=== PATIENT | male | born 1960 | race Caucasian/White ===

== ENCOUNTER → 2024-10-20 | Outpatient (CLI) | payer OTHER, SELFPAY ==
--- NOTE | 2024-10-20 08:00 | EKG12_ITS ---
Test Reason : CARDIAC ARRYTHMIA Blood Pressure : */* mmHG Vent. Rate : 78 BPM Atrial Rate : 88 BPM P-R Int : 152 ms QRS Dur : 90 ms QT Int : 360 ms P-R-T Axes : 59 36 32 degrees QTcB Int : 410 ms Sinus rhythm with marked sinus arrhythmia with junctional escape complexes Possible Inferior infarct , age undetermined Abnormal ECG Confirmed by KAYLIE SCHAFFER, VIVIANA ([id number]), order editor JING PALMA ([id number]) on 10/25/2024 6:48:40 AM Referred By: Sky Venegas Confirmed By: VIVIANA LOTT MD
== END | disposition home or self-care (01) ==
LOC: PSN 07:59
DX: I49.9 Cardiac arrhythmia, unspecified (principal)
CPT/HCPCS: 93005

== ENCOUNTER 2024-12-20 07:28 | Day surgery (SDC) | payer OTHER, SELFPAY ==
--- NOTE | 2024-12-16 14:13 | PAT.ANESEVAL ---
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 When Was Last Pacemaker Check QUESTION #4 FULL TEXT: You/Your Family Experience fever (hyperthermia) with Anesthesia Last Oral Intake Last Oral intake: Last Oral Intake NPO since Meds taken in AM with sips of water? 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 Female No 12/16/24 11:47 HX of Motion Sickness No 12/16/24 11:47 HX of N/V After Surgery No 12/16/24 11:47 Non-Smoker Yes 12/16/24 11:47 Duration of Surgery greater No 12/16/24 11:47 than 60 minutes Number of Risk Factors 1 12/16/24 11:47 PONV Score Low Risk 12/16/24 11:47 Height & Weight Height & Weight: Anesthesia: Height & Weight Height 73 ft 12/07/23 11:11 Respiratory Assessment Respiratory Assessment - seal delivery vehicle team technician: Respiratory Tract Infection Hx - 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 Has anyone observed you stop No 12/16/24 11:47 breathing during sleep? STOP Results Negative 12/16/24 11:47 QUESTION #5 FULL TEXT : Do you snore loudly (louder than talking or can be heard through closed doors)? 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 Specify any problems Hx of Preganancy in last 3 N/A 12/16/24 11:47 Months Nurse Filling Out Transfusion MGRIFFITH 12/16/24 11:47 & Questions: Date: 12/16/24 12/16/24 11:47 Time: 11:49 12/16/24 11:47 Patient unable to answer at this time (ie. 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: /Reproductive Hx- seal delivery vehicle team technician Hx Now Gestational Age (in weeks): EDC: Hx Hx Para [facility] History (Updated 12/16/24 @ 11:54 by Lisa Dunn) Non-smoker History of irregular heartbeat Home Medications ?Medication ?Instructions ?Recorded ?Last Taken ?Type NK 12/16/24 Unknown History Allergy/AdvReac Type Severity Reaction Status Date / Time No Known Allergies Allergy Verified 12/16/24 11:45 Surgical History (Updated 12/16/24 @ 11:47 by Lisa Dunn) History of knee surgery History of shoulder surgery History of back surgery History of colonoscopy Social History (System 01/01/24 @ 14:59 by Nica Vo) Smoking Status: Never smoker Audit: Pertinent Findings Pertinent Findings EKG Perinent findings: October 20, 2024. Sinus rhythm with marked sinus arrhythmia with junctional escape complexes. Possible inferior infarct, age undetermined. Recommendation Anesthesia Recommendation Anesthesia recommendation: OPTIMIZED for anesthesia
--- OUTSIDE RECORDS SUMMARY | 2024-12-20 07:30 | XMS RPT_ITS | CCD ---
Author Organization [facility] Care Team Providers Care Manager Global Name Role Phone Unavailable Primary Care Provider UnavailNEDRA Gould Attending Unavailable NEDRA PADRON Primary Care Unavailable NEDRA PADRON Admitting Unavailable ALFREDITO PATRICK CNP Admitting Unavailable ALFREDITO PATRICK CNP Attending Unavailable ALFREDITO PATRICK CNP Primary Care Unavailable Beam OFFICE SERVICES ASSISTANT-C, Zebulun Primary Care Provider [phone] Beam OFFICE SERVICES ASSISTANT-C, [place]ebulun Attending Provider Beam OFFICE SERVICES ASSISTANT-C, [place]un Referring Provider [phone] Melo Ramesh Primary Care Provider [phone] KASH GARCIA Referring UnavailMELO Alarcon Primary Care Unavailable SELF Referring Unavailable KASH GARCIA Attending UnavailMELO Alarcon Primary Care Unavailable Beam VSC, Zebulun Primary Care Unavailable Roger Collins Attending Unavailjared e Beam VSC, [place]ebulun Referring Unavailable Beam VSC, Zebulun Primary Care Unavailable Beam VSC, Zebulun Referring Unavailable Beam VSC, [place]ebulun Attending Unavailable Leonel Grubbs Attending Unavailable Beam VSC, [place]un Referring Unavailable Beam VSC, Zebulun Primary Care Unavailable Medications Current Medications Medication Drug Class(es) Dates Sig (Normalized) Sig (Original) acetaminophen 325 mg / HYDROcodone bitartrate 5 mg oral tablet (10 sources) Opioid Agonist Start: 07-12-2014 take 1 tablet by mouth every six hours as needed HYDROcodone-aceta minophen (NORCO) 5-325 mg per tablet Take 1 tablet by mouth every 6 hours as needed. 17 tablet 0 07/12/2014 Active Start: 07-10-2014 HYDROcodone-ac etaminophen (NORCO) 5-325 mg per tablet Indications: pain take 1-2 tablets every 4-6 hours as needed for pain Indications: PAIN 50 tablet 0 07/10/2014 Active cephalexin 500 mg oral capsule (5 sources) Cephalosporin Antibacterial take 1 capsule by mouth four times daily cephALEXin (KEFLEX) 500 mg capsule Take 500 mg by mouth four times daily. Active docusate sodium 100 mg oral capsule (5 sources) Start: 07-10-19 15 take 1 capsule by mouth twice daily as needed for constipation docusate sodium (COLACE) 100 mg capsule Indications: constipation Take 1 capsule by mouth twice daily as needed for Constipation. Indications: CONSTIPATION 0 07/10/2014 Active mupirocin 0.02 mg/mg topical ointment (6 sources) RNA Synthetase Inhibitor Antibacterial Start: 12-06-19 25 End: 05-01-20 25 mupirocin (BACTROBAN) 2 % ointment Indications: Preop testing Apply to both nares twice daily for the five days preceding your joint replacement surgery 22 g 12/05/2024 05/01/2025 Active Start: 06-22-2014 mupirocin (JESÚS TROBAN) 2 % nasal ointment appy twice a day to both nostrils with a q tip beginning five days prior to surgery 1 Tube 0 06/22/2014 Active ondansetron 4 mg disintegrating oral tablet (5 sources) Serotonin-3 Receptor Antagonist Start: 07-12-2014 take 1 tablet by mouth every six hours ondansetron orally disintegrating (ZOFRAN ODT) 4 mg disintegrating tablet Take 1 tablet by mouth every 6 hours. 17 tablet 0 07/12/2014 Active 72 hr scopolamine 0.0139 mg/hr transdermal system (5 sources) Anticholinergic Start: 07-10-2014 apply 1.5 mg transdermal route in the morning scopolamine (TRANSDERM-SCOP) 1.5 mg Indications: prevention of post-operative nausea and vomiting remove from behind ear on Thursday am Wash hands!!! Indications: PREVENTION OF POST-OPERATIVE NAUSEA AND VOMITING 1 Patch 0 07/10/2014 Active Problems Active Problems Problem Classification Problem Date Documented Date Episodic/Chronic Administrative/social admission (1 source) Patient encounter status; Translations: [Encounter for examination for insurance purposes] 01-01-2024 Episodic Cardiac dysrhythmias (2 sources) Cardiac arrhythmia, unspecified; Translations: [Cardiac arrhythmia, unspecified] Onset: 07-16-2023 Chronic Open wounds of extremities (1 source) Laceration of finger; Translations: [Laceration without foreign body of unspecified finger without damage to nail, initial encounter] 01-01-2024 Episodic Osteoarthritis (13 sources) Osteoarthritis of knee; Translations: [Osteoarthritis of knee, unspecified] Onset: 07-10-2014 11-30-2024 Chronic Other acquired deformities (1 source) Acquired varus deformity of right knee; Translations: [Varus deformity, not elsewhere classified, right knee] 12-01-2024 Episodic Residual codes; unclassified (1 source) Pain; Translations: [Pain, unspecified] 11-30-2024 Episodic Residual codes; unclassified (1 source) Pain, unspecified; Translations: [Pain] Onset: 11-30-2024 Episodic Sprains and strains (1 source) Strain of muscle of upper limb; Translations: [Strain of unspecified muscle, fascia and tendon at shoulder and upper arm level, left arm, initial encounter] Episodic Unclassified (2 sources) Total Knee Replacement Child Care Associate Onset: 12-01-2024 12-01-2024 Past or Other Problems Problem Classification Problem Date Documented Da te Episodic/Chronic Joint disorders and dislocations; trauma-related (5 sources) Derangement of knee; Translations: [Unspecified internal derangement of unspecified knee] Onset: 11-04-2006 Resolved: 11-27-2006 09-27-2024 Chronic Joint disorders and dislocations; trauma-related (5 sources) Tear of medial meniscus of knee; Translations: [Tear of medial cartilage or meniscus of knee, current] Onset: 11-27-2006 09-27-2024 Episodic Other aftercare (5 sources) Surgical follow-up; Translations: [Encounter for follow-up examination after completed treatment for conditions other than malignant neoplasm] Onset: 08-29-2014 08-29-2014 Episodic Other connective tissue disease (5 sources) Muscle atrophy; Translations: [Muscle wasting and atrophy, not elsewhere classified, unspecified site] Onset: 02-18-2008 02-18-2008 Episodic Other non-traumatic joint disorders (5 sources) Pain in lower limb; Translations: [Pain in unspecified knee] Onset: 02-18-2008 02-18-2008 Episodic Other non-traumatic joint disorders (5 sources) Effusion of joint; Translations: [Effusion, unspecified joint] Onset: 08-29-2014 08-29-2014 Episodic Unclassified (1 source) Patient encounter status 12-05-2024 Unclassified (1 source) Acquired varus deformity of right knee 12-05-2024 Results Test Name Value Interpretation Reference Range Facility MR/PAT.Wilver 12-16-2024 MR/PAT.MARIA VICTORIA [facility] Medical Records Department [address] [place] [address] PAT - Anesthesia 12/16/24 1413 MR#: [id number] Acct: [id number] Name: HUMBLE JUDD Rep #: [id number] : 1960 64 From: Benito Campuzano MD PCP: Sky Venegas OFFICE SERVICES ASSISTANT-C Status:PRE MSC Y Race: C Location: EN Pre-Assessment Diagnosis/Proposed Procedure Planned Operative Procedure(s): COLONOSCOPY Anesthesia History Anesthesia History - medical appliance maker: Anesthesia History - medical appliance maker Hx Hospitalization No 12/16/24 11:47 Any Problems With Anesthesia No 12/16/24 11:47 Cholinesterase deficiency No 12/16/24 11:47 You/Your Family Experience No 12/16/24 11:47 fever (hyperthermia) with Relationship Recent Exposure to Contagious Disease Does patient have nerve No 12/16/24 11:47 stimulator Patient instructed to have device shut off --Does patient have Pacemaker or ICD? When Was Last Pacemaker Check QUESTION #4 FULL TEXT: You/Your Family Experience fever (hyperthermia) with Anesthesia Last Oral Intake Last Oral intake: Last Oral Intake NPO since Meds taken in AM with sips of water? 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 - medical appliance maker: PONV - medical appliance maker Female No 12/16/24 11:47 HX of Motion Sickness No 12/16/24 11:47 HX of N/V After Surgery No 12/16/24 11:47 Non-Smoker Yes 12/16/24 11:47 Duration of Surgery greater No 12/16/24 11:47 than 60 minutes Number of Risk Factors 1 12/16/24 11:47 PONV Score Low Risk 12/16/24 11:47 Height Weight Height Weight: Anesthesia: Height Weight Height 73 ft 12/07/23 11:11 Respiratory Assessment Respiratory Assessment - medical appliance maker: Respiratory Tract Infection Hx - medical appliance maker Hx Respiratory Tract Infection No 12/16/24 11:47 STOP Sleep Apnea STOP Sleep Apnea - medical appliance maker: STOP Sleep Apnea - medical appliance maker Hx Hypertension No 12/16/24 11:47 Hx Sleep Apnea No 12/16/24 11:47 CPAP BIPAP Do you snore loudly (louder No 12/16/24 11:47 than talking or can be heard Do you often feel tired/ No 12/16/24 11:47 fatigued/ sleepy during daytime? Has anyone observed you stop No 12/16/24 11:47 breathing during sleep? STOP Results Negative 12/16/24 11:47 QUESTION #5 FULL TEXT : Do you snore loudly (louder than talking or can be heard through closed doors)? 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 Specify any problems Hx of Preganancy in last 3 N/A 12/16/24 11:47 Months Nurse Filling Out Transfusion JENNA 12/16/24 11:47 Questions: Date: 12/16/24 12/16/24 11:47 Time: 11:49 12/16/24 11:47 Patient unable to answer at this time (ie. confused, unrespo /Reproductio n History /Reproductiv e History - medical appliance maker: /Reproductiv e Hx- medical appliance maker Hx Now Gestational Age (in weeks): EDC: Hx Hx Para Hx Section SAB PFSH Medical History (Updated 12/16/24 @ 11:54 by Lisa Dunn) Non-smoker History of irregular heartbeat Home Medications ???Medication ???Instructions ???Recorded ???Last Taken ???Type NK 12/16/24 Unknown History Allergy/AdvReac Type Severity Reaction Status Date / Time No Known Allergies Allergy Verified 12/16/24 11:45 Surgical History (Updated 12/16/24 @ 11:47 by Lisa Dunn) History of knee surgery History of shoulder surgery History of back surgery History of colonoscopy Social History (System 01/01/24 @ 14:59 by Nica Vo) Smoking Status: Never smoker Audit: Pertinent Findings Pertinent Findings EKG Perinent findings: October 20, 2024. Sinus rhythm with marked sinus arrhythmia with junctional escape complexes. Possible inferior infarct, age undetermined. Recommendation Anesthesia Recommendation Anesthesia recommendation: OPTIMIZED for anesthesia 12/16/24 1420 Date Benito Douglas (more content not included)... Normal [facility] CNOVon 11-30-2024 [facility] Office Visit ([facility] ) HUMBLE JUDD ([id number]) 1960 M Date Time Provider Department 11/30/24 8:45 AM KASH GARCIA During your visit today, we recorded the following information about you: Weight 116.3 kg Kash Garcia MD 11/30/2024 9:15 AM Signed CONSULT ORTHOPAEDIC: KNEE PRIMARY CARE PHYSICIAN: Melo Ramesh MD REFERRING PROVIDER: SELF ASSESSMENT AND PLAN Impression: Right Knee Severe Degenerative Osteoarthritis, Primary 64M Healthy Hx of L uni in 1999 with Kolczun R knee pain, end stage OA. Hx of bracing, nsaids, failed conserv tx Plan: R TOTAL KNEE ARTHROPLASTY Jayy 1 night stay Aspirin Diagnoses: (M17.11) Primary osteoarthritis of right knee (primary encounter diagnosis) Based upon the evaluation today and after discussions with Humble Judd, Humble Judd has significant, worsening pain at the knee. This pain is increased with activity and weight bearing, and interferes with activities of daily living. These symptoms have continued despite a number of non-surgical measures, including a trial of oral pain medication and attempted physical therapy/ structured exercise program and/or use of an assistive device/ bracing (for at least 12 weeks unless the patient was unable to tolerate these measures as discussed above). At this point, the patient will not benefit from further PT due to the severity of their condition. The patient's physical examination is consistent with limitations in range of motion, pain with passive range of motion, crepitus, and effusion/ synovitis. These examination findings are corroborated by imaging findings of joint space narrowing, periarticular osteophyte formation, and subchondral sclerosis. The patient has been treated by the practice and all reasonable treatments have failed to control the disease, which causes significant pain and limits activities of daily living. The patient has failed conservative treatment and joint replacement surgery was discussed and agreed upon by both provider and patient. We will proceed with surgical management to improve function and relieve pain refractory to non-surgical measures. Right Primary Total Knee Arthroplasty as evidenced by six months of unsuccessful non-operative treatment as outlined in the HPI below. Informed consent obtained in the office today. The risks and benefits of surgery were discussed at length including but not limited to the risks of infection, bleeding, nerve or blood vessel injury, deep venous thrombosis, pulmonary embolism, arthrofibrosis, reflex sympathetic dystrophy, , paralysis, knee or patellar dislocation, extensor mechanism injury, bone fracture, component loosening or failure requiring re-operation or amputation. Informed consent was obtained and the patient was scheduled for surgery. We also discussed fixation strategies including cement and cementless fixation and advantages and disadvantages of each. We discussed the details of the surgery as well as rehabilitation. All questions were answered, and the patient wishes to proceed with surgery.. The patient has been ordered: Office Visit on 11/30/24 XR KNEE GENERAL 4V AP BOTH/PA BOTH/LAT/MERC RIGHT Anemia Screen CONSULTS: IMPACT/PACE Consult for preoperative clearance. Total Joint Arthroplasty: Risk Calculator Humble Judd has a 2.24% chance of NOT returning home at discharge for a Primary total Knee replacement. Humble's estimated Length of Stay is 1 day (Outpatient candidate). Humble's 30 day chance of readmission is 2.14%. Readmission Probability 2.14 % (within 30 days following surgery) Estimated LOS 1 day Discharge Disposition Probability D/C to Home 97.76 % D/C to SNF 2.24 % These calculations are based on the following factors: - 64 years of age - sex is male - BMI of 33.83 kg/m2 - NarxCare score of 40 - 0 hospitalizations in the last 12 months - no history of heart disease - no history of diabetes - no history of COPD - no history of anemia - preoperative ambulation: independent community distances - 0 step(s) to enter home - bed location is on the first floor - bath location is on the first floor - caregiver is consistent - home is more than 150 miles away - PROMIS-10 Mental Health T score not available - Marital status: Risk Factors for Total Knee Arthroplasty (TKA) Major Risk Factors Obesity Unknown Risk High: BMI > 40 Moderate: BMI 30-40 Normal: BMI < 30 Diabetes normal High: A1C > 8 Moderate: A1C 7-8 Normal: A1C < 7 Hx of DVT / PE normal High: dx of DVT / PE Normal: no dx of DVT / PE Smoking normal High: Current smoker Normal: Non smoker Narcotics Use normal High:NarxCare >=300 Moderate: 100-299 Normal: 0-99 Depression Unknown Risk High: PHQ-9 >14 Moderate: PHQ-9 5-14 Normal: PHQ-9 < 5 Area Deprivation Index (SARANYA (more content not included)... Normal [facility] XR KNEE 4V AP/PA BOTH+LAT/ME R RTon 11-30-2024 XR KNEE 4V AP/PA BOTH+LAT/FLAQUITO RT * * *Final Report* * * DATE OF EXAM: Nov 30 2024 7:53AM SVX 5203 - XR KNEE 4V AP/PA BOTH+LAT/FLAQUITO RT / PROCEDURE REASON: Pain * * * * Physician Interpretation * * * * EXAMINATION / TECHNIQUE: XR KNEE 4V AP/PA BOTH+LAT/FLAQUITO RT PATIENT/TECHNOLOGIST PROVIDED HISTORY: chronic right knee pain CLINICAL INFORMATION ( PROVIDED BY ORDERING CLINICIAN) : Pain COMPARISON: 08/29/2014 RESULT: No acute fracture. Right genu varum and severe medial compartment osteoarthritis with [id number] articulation chronic osseous remodeling, progressed since 2014. Mild patellofemoral and minimal lateral compartment degenerative changes. Small joint effusion with 6 mm intra-articular body posteriorly. Corticated ossification along the distal patellar tendon fibers. Comparison images of the left knee demonstrate no acute abnormality. IMPRESSION: Severe right knee medial compartment osteoarthritis, progressed since 2014. Wrong Address Clerk: PSCB Transcribe Date/Time: Dec 07 2024 7:52A Dictated by : SARAH NEVILLE MD This examination was interpreted and the report reviewed and electronically signed by: SARAH NEVILLE MD on Dec 07 2024 7:53AM EST [id number] Normal [facility] Electrocardiogram reportOrde red By: Roger Collins on 10-25-2024 EKG study [facility] Cardiovascular Services [address] [place] [address] 12 Lead EKG 10/20/24 0808 MR#: [id number] Acct: [id number] Name: HUMBLE JUDD Rep #:[id number] : 1960 64 From: Roger walton MD Attending Dr: Sky Venegas OFFICE SERVICES ASSISTANT-C Status: REG CLI Ordering Dr: Sky Venegas OFFICE SERVICES ASSISTANT-C Aidan e: 10/20/24 Location: [facility] Sex: M C Admitted: Test Reason : CARDIAC ARRYTHMIA Blood Pressure : */* mmHG Vent. Rate : 78 BPM Atrial Rate : 88 BPM P-R Int : 152 ms QRS Dur : 90 ms QT Int : 360 ms P-R-T Axes : 59 36 32 degrees QTcB Int : 410 ms Sinus rhythm with marked sinus arrhythmia with junctional escape complexes Possible Inferior infarct , age undetermined Abnormal ECG Confirmed by VIVIANA COLLINS MD ([id number]), telegraph editor JING PALMA ([id number]) on10/25/2024 6:48:40 AM Referred By: Sky Venegas Confirmed By: VIVIANA COLLINS MD 10/25/24 8848 Date _ Roger Collins MD CC: Sky READ OFFICE SERVICES ASSISTANT-C Theo ~ Signed [facility] Other 12 Lead EKGon 10-20-2024 12 Lead EKG [facility] Cardiovascular Services [address] [place] [address] 12 Lead EKG 10/20/24 0808 MR#: [id number] Acct: [id number] Name: HUMBLE JUDD Rep #: [id number] : 1960 64 From: Roger Collins MD Attending Dr: Sky Venegas OFFICE SERVICES ASSISTANT-C Status: REG CLI Ordering Dr: Sky Venegas OFFICE SERVICES ASSISTANT-C Date: 10/20/24 Location: [facility] Sex: M C Admitted: Test Reason : CARDIAC ARRYTHMIA Blood Pressure : */* mmHG Vent. Rate : 78 BPM Atrial Rate : 88 BPM P-R Int : 152 ms QRS Dur : 90 ms QT Int : 360 ms P-R-T Axes : 59 36 32 degrees QTcB Int : 410 ms Sinus rhythm with marked sinus arrhythmia with junctional escape complexes Possible Inferior infarct , age undetermined Abnormal ECG Confirmed by KAYLIE SCHAFFER, VIVIANA ([id number]), telegraph editor JING PALMA ([id number]) on 10/25/2024 6:48:40 AM Referred By: Sky Venegas Confirmed By: VIVIANA COLLINS MD 10/25/24 0648 Date Roger Collins MD CC: Sky [facility] Theo Signed Normal [facility] QUANTIFERON TB INCUBATED [CC L]on 07-16-2023 Mitogen minus Nil >9.99 Normal >=0.50 [facility] Comment on above: Performed By: #### 2 [id number] #### [facility],[address] [place] [address] TB Gamma Interpretation Infection with M. tuberculosis complex is unlikely. If latent tuberculosis infec Normal [facility] Comment on above: Result Comment: [facility] [address] [place] [address] Pradip Fernández III, M.D. [id number] Performed By: #### 2 05768 #### [facility],[address] [place] [address] 18673 TB NIL 0.01 IU/mL Normal <=8.00 [facility] Comment on above: Performed By: #### 2 22435 #### [facility],[address] [place], [place] [id number] TB Result Negative Normal [facility] Comment on above: Performed By: #### 2 02034 #### [facility],[address] [place] [address] 38963 TB1 Ag minus Nil 0.04 IU/mL Normal <0.35 [facility] Comment on above: Performed By: #### 2 32865 #### [facility],[address] [place], [place] [id number] TB2 Ag minus Nil 0.06 IU/mL Normal <0.35 [facility] Comment on above: Performed By: #### 2 53192 #### [facility],[address] [place] [address]606 HEP B SURFACE AB, QUANT [CCL ]on 07-15-2023 HepB Surface Ab,Qual Negative Normal [facility] Comment on above: Result Comment: No s erological evidence of immunity to Hepatitis B Virus. Performed By: #### 2 33098 #### [facility],[address] [place] [address] HepB SurfaceAb,Quant <8.00 Normal [facility] Comment on above: Result Comment: <8 m IU/mL: No serological evidence of immunity to Hepatitis B Virus. >/= 8 to <12 mIU/mL: No serological evidence of immunity to Hepatitis B Virus. >/= 12 mIU/mL: Consistent with serological evidence of immunity to Hepatitis B Virus. [facility] [address] [place] [address] Pradip Fernández III, M.D. [id number] Performed By: #### 2 69085 #### [address] [address] MEASLES IGG ANTIBODY [CCL]on 07-15-2023 Measles IgG, Qual Positive Normal Positive [facility] Comment on above: Result Comment: The result suggests recent or past exposure to Measles virus or Measles vaccination. The current test does not detect neutralizing antibodies. Positive result may also be seen due to presence of passively-transferred antibodies. Please correlate [place] [address] Pradip Fernández III, M.D. [id number] Performed By: #### 2 93064 #### [address] [address] MUMPS IGG AB [CCL]on 024 Mumps IgG, Qual Positive Normal Positive [facility] Comment on above: Result Comment: The result suggests recent or past exposure to Mumps virus or Mumps vaccination. The current test does not detect neutralizing antibodies. Positive result may also be seen due to presence of passively-transferred antibodies. Please correlate with [place] [address] Pradip Fernández III, M.D. [id number] Performed By: #### 2 85659 #### [address] [address] RUBELLA IgG ANTIBODY [CCL]on 07-15-2023 Rubella IgG Ab, Qual Positive Normal Positive [facility] Comment on above: Result Comment: The result suggests recent or past exposure to Rubella virus or history of Rubella vaccination. Positive result may also be seen due to presence of passively-transferred antibodies. Please correlate with patient's history. [place] [id number] Pradip Fernández III, M.D. [id number] Performed By: #### 2 79377 #### [facility],[address] [place] [address] GLUCOSEon 07-14-2023 Glucose [Mass/Vol] 112 mg/dL High 74 - 106 [facility] Comment on above: Performed By: #### 2 77035 #### [facility],[address] [place] [address] LIPID PROFILEon 07-14-2023 Cholesterol [Mass/Vol] 213 mg/dL Normal 0 - 240 [facility] Comment on above: Performed By: #### 2 13878 #### [facility],[address] [place] [address]1627 Cholesterol in HDL [Mass/Vol] 54 mg/dL Normal 40 - 60 [facility] Comment on above: Performed By: #### 2 74590 #### [facility],[address] [place] [address]87 Cholesterol in LDL [Mass/Vol] 126 mg/dL Normal 0 - 129 [facility] Comment on above: Performed By: #### 2 63995 #### [facility],[address] [place] [address] Cholesterol.total/Chol esterol in HDL [Mass ratio] 3.9 {ratio} Normal 0.0 - 5.0 [facility] Comment on above: Performed By: #### 2 93534 #### [facility],[address] [place] [address]6072 Lipid 1996 panel Normal [facility] Comment on above: Result Comment: LIPI D PROFILE Performed By: #### 2 83457 #### [facility],[address] [place] [address]99 Triglyceride [Mass/Vol] 166 mg/dL High 0 - 150 [facility] Comment on above: Performed By: #### 2 51985 #### [facility],[address] [place] [address] URINE COTININE TEST [NEW EMP LOYEE]on 07-14-2023 COTININE Negative Normal NORMAL: NEGATIVE [facility] Comment on above: Result Comment: [facility] One Step Cotinine Device (Urine) yields a positve result when the Cotinine in urine exceeds 200 ng/mL. A Cotinine concentration > 200 ng/mL indicates an active tobacco product user. The window of detection for Cotinine in urine at a cutoff level of 200 ng/mL is expected to be up to 2-3 days after nicotine use. Performed By: #### 2 [id number] #### [facility],[address] [place] [address] MRI UPPER EXTREMITY LEFT W J T WO CONTRASTon 04-24-2020 Patient Name: HUMBLE JUDD ---MRI--- Exam Date/Time 04/24/2020 07:54:16 EST Exam MRI Up Ext Joint w/o Contrast Left Ordering Physician ROSEY JIMENEZ DARLENE Accession Number [id number] CPT4 Codes 19906 () Reason For Exam lt shoulder strain Report Examination: MRI left shoulder Clinical Indication: lt shoulder strain Comparison: X-ray 02/03/2020 Findings: Multiplanar multisequence high field strength MRI images were obtained through the left shoulder without intravenous gadolinium. No fracture or subluxation. Acromial clavicular joint is mildly degenerative with small osteophytes and trace degenerative edema. Slight lateral downsloping of the acromion. Trace inflammation in the subacromial subdeltoid bursa. Shoulder is internally rotated. Long head biceps tendon demonstrates no tear or tendon tenosynovitis. Subscapularis demonstrates minimal increased T2 signal, tendinitis with tiny low-grade partial-thickness interstitial, insertional tear of the distal mid fibers series 11 image 12 and measuring up to 3 mm. No sizable or full-thickness tear. Supraspinatus demonstrates trace increased T2 signal, tendinitis without tear. No muscular atrophy. Infraspinatus anterior minor are normal. Tiny shoulder joint effusion. Glenohumeral articular cartilage demonstrates htrr-au-hxdhwoqf cartilage thinning. Small inferior glenoid osteophytes. Glenoid labrum demonstrates diffuse degeneration and degenerative tear. Paralabral cyst extends inferior to the glenoid best seen on series 11 image 16 and measures up to 2.5 cm in length and up to 0.7 cm in diameter. There is some thickening and inflammation within the inferior capsule. No tear. Impression: 1. Mild acromioclavicular osteoarthropathy and lateral downsloping acromion. Finding causes mild impingement with trace subacromial subdeltoid bursitis. 2. Tiny low-grade partial-thickness interstitial, insertional footprint tear of the mid subscapularis 0.3 cm. No sizable or full-thickness tear. Findings superimposed on minimal subscapularis and supraspinatus tendinitis. 3. Etvt-fs-wgtqvive glenohumeral cartilage thinning with some osteoarthropathy and degenerative labral tear. Paralabral cyst inferiorly. 4. Inferior capsular thickening and inflammation possibly adhesive capsulitis or a mild capsular sprain. Report Dictated on Workstation: [id number] --- Final --- Dictated: 04/24/2020 8:46 am Dictating Physician: MD JOHN ANTHONY J Signed Date and Time: 04/24/2020 8:53 am Signed by: MD JOHN ANTHONY J Transcribed Date and Time: 04/24/2020 8:46 [facility], [facility] Incoming Radiology Results From [facility] - 04/24/2020 8:55 AM EST Patient Name: HUMBLE JUDD ---MRI--- Exam Date/Time 04/24/2020 07:54:16 EST Exam MRI Up Ext Joint w/o Contrast Left Ordering Physician ROSEY JIMENEZ DARLENE Accession Number [id number] CPT4 Codes 57718 () Reason For Exam lt shoulder strain Report Examination: MRI left shoulder Clinical Indication: lt shoulder strain Comparison: X-ray 02/03/2020 Findings: Multiplanar multisequence high field strength MRI images were obtained through the left shoulder without intravenous gadolinium. No fracture or subluxation. Acromial clavicular joint is mildly degenerative with small osteophytes and trace degenerative edema. Slight lateral downsloping of the acromion. Trace inflammation in the subacromial subdeltoid bursa. Shoulder is internally rotated. Long head biceps tendon demonstrates no tear or tendon tenosynovitis. Subscapularis demonstrates minimal increased T2 signal, tendinitis with tiny low-grade partial-thickness interstitial, insertional tear of the distal mid fibers series 11 image 12 and measuring up to 3 mm. No sizable or full-thickness tear. Supraspinatus demonstrates trace increased T2 signal, tendinitis without tear. No muscular atrophy. Infraspinatus anterior minor are normal. Tiny shoulder joint effusion. Glenohumeral articular cartilage demonstrates gvef-ke-pgddwkkz cartilage thinning. Small inferior glenoid osteophytes. Glenoid labrum demonstrates diffuse degeneration and degenerative tear. Paralabral cyst extends inferior to the glenoid best seen on series 11 image 16 and measures up to 2.5 cm in length and up to 0.7 cm in diameter. There is some thickening and inflammation within the inferior capsule. No tear. Impression: 1. Mild acromioclavicular osteoarthropathy and lateral downsloping acromion. Finding causes mild impingement with trace subacromial subdeltoid bursitis. 2. Tiny low-grade partial-thickness interstitial, insertional footprint tear of the mid subscapularis 0.3 cm. No sizable or full-thickness tear. Findings superimposed on minimal subscapularis and supraspinatus tendinitis. 3. Lbxg-jl-pyojjmje glenohumeral cartilage thinning with some osteoarthropathy and degenerative labral tear. Paralabral cyst inferiorly. 4. Inferior capsular thickening and inflammation possibly adhesive capsulitis or a mild capsular sprain. Report Dictated on Workstation: [id number] --- Final --- Dictated: 04/24/2020 8:46 am Dictating Physician: MD JOHN ANTHONY J Signed Date and Time: 04/24/2020 8:53 am Signed by: MD JOHN ANTHONY J Transcribed Date and Time: 04/24/2020 8:46 [place], [place] CR Elbow 3+ Views Lefton CR Elbow 3+ Views Left Patient Name: HUMBLE CHAVEZ Diagnostic Radiology Exam Date/Time 02/03/2020 15:56:37 EDT Exam CR Elbow 3+ Views Left Ordering Physician MAU PEDRAZA Accession Number [id number] CPT4 Codes 15560 () Reason For Exam Contustion lt elbow Report LEFT ELBOW CLINICAL INDICATION: Pain after trauma AP, lateral, and oblique plain film views of the left elbow were obtained. COMPARISON: None. FINDINGS: No fracture or dislocation of the left elbow is identified. There is no joint effusion or radiopaque foreign body seen. Slight degenerative spurring of the left elbow joint is noted. IMPRESSION: No fracture or dislocation of the left elbow is identified. Mild degenerative changes. Report Dictated on Final Dictating Physician: MD RAMIREZ JONATHAN R Signed Date and Time: 02/03/2020 4:33 pm Signed by: MD RAMIREZ JONATHAN R Transcribed Date and Time: 02/03/2020 4:34 Normal [facility] CR Finger(s) Min 2 Views [place] 02-03-2020 CR Finger(s) Min 2 Views Left Patient Name: HUMBLE JUDD Diagnostic Radiology Exam Date/Time 02/03/2020 15:56:37 EDT Exam CR Finger(s) Min 2 Views Left Ordering Physician MAU PEDRAZA Accession Number [id number] CPT4 Codes 40647 () Reason For Exam Sprain lt thumb Report LEFT THUMB CLINICAL INDICATION: Pain after trauma AP and lateral plain films of the left thumb were obtained. COMPARISON: None FINDINGS: No fracture or dislocation of the left thumb is identified. There is no abnormal soft tissue swelling or radiopaque foreign body. Mild loss of joint space and degenerative spurring is noted. IMPRESSION: No fracture or dislocation of the left thumb is identified. Mild osteoarthritis of the left thumb. Report Dictated on Final Dictating Physician: MD RAMIREZ JONATHAN R Signed Date and Time: 02/03/2020 4:35 pm Signed by: MD RAMIREZ JONATHAN R Transcribed Date and Time: 02/03/2020 4:36 Normal [facility] CR Shoulder 2+ Views Lefton 02-03-2020 CR Shoulder 2+ Views Left Patient Name: HUMBLE JUDD Diagnostic Radiology Exam Date/Time 02/03/2020 15:56:37 EDT Exam CR Shoulder 2+ Views Left Ordering Physician MAU PEDRAZA Accession Number [id number] CPT4 Codes 65385 () Reason For Exam Strain lt shoulder Report LEFT SHOULDER CLINICAL INDICATION: Pain after trauma Three views of the left shoulder were obtained. COMPARISON: None. FINDINGS: No fracture or dislocation of the left shoulder is identified. There is no abnormal soft tissue swelling. The left acromioclavicular and glenohumeral joints appear grossly normal. IMPRESSION: Unremarkable plain films of the left shoulder. Report Dictated on Final Dictating Physician: MD RAMIREZ JONATHAN R Signed Date and Time: 02/03/2020 4:33 pm Signed by: MD RAMIREZ JONATHAN R Transcribed Date and Time: 02/03/2020 4:34 Normal [facility] CR Wrist Complete 3 Views [place] 02-03-2020 CR Wrist Complete 3 Views Left Patient Name: HUMBLE JUDD Diagnostic Radiology Exam Date/Time 02/03/2020 15:56:37 EDT Exam CR Wrist Complete 3 Views Left Ordering Physician MAU PEDRAZA Accession Number [id number] CPT4 Codes 13870 () Reason For Exam Sprain lt wrist Report LEFT WRIST CLINICAL INDICATION: Pain after trauma AP, lateral, and oblique plain film views of the left wrist were obtained. COMPARISON: None FINDINGS: No fracture or dislocation of the left wrist is identified. There is no abnormal soft tissue swelling or radiopaque foreign body seen. There is severe loss of joint space and degenerative spurring at the scaphotrapezial joint. IMPRESSION: No fracture or dislocation of the left wrist is identified. 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 Report Dictated on Final Dictating Physician: MD RAMIREZ JONATHAN R Signed Date and Time: 02/03/2020 4:35 pm Signed by: MD RAMIREZ JONATHAN R Transcribed Date and Time: 02/03/2020 4:36 Normal [facility] XR ELBOW LEFT (MIN 3 VIEWS)o n 02-03-2020 Patient Name: HUMBLE JUDD ---Diagnostic Radiology--- Exam Date/Time 02/03/2020 15:56:37 EDT Exam CR Elbow 3+ Views Left Ordering Physician MAU PEDRAZA Accession Number [id number] CPT4 Codes 55009 () Reason For Exam Contustion lt elbow Report LEFT ELBOW CLINICAL INDICATION: Pain after trauma AP, lateral, and oblique plain film views of the left elbow were obtained. COMPARISON: None. FINDINGS: No fracture or dislocation of the left elbow is identified. There is no joint effusion or radiopaque foreign body seen. Slight degenerative spurring of the left elbow joint is noted. IMPRESSION: No fracture or dislocation of the left elbow is identified. Mild degenerative changes. Report Dictated on --- Final --- Dictating Physician: MD RAMIREZ JONATHAN R Signed Date and Time: 02/03/2020 4:33 pm Signed by: MD RAMIREZ JONATHAN R Transcribed Date and Time: 02/03/2020 4:34 [place], [place] Incoming Radiology Results From [facility] - 02/03/2020 4:34 PM EDT Patient Name: HUMBLE JUDD ---Diagnostic Radiology--- Exam Date/Time 02/03/2020 15:56:37 EDT Exam CR Elbow 3+ Views Left Ordering Physician MAU PEDRAZA Accession Number [id number] CPT4 Codes 62233 () Reason For Exam Contustion lt elbow Report LEFT ELBOW CLINICAL INDICATION: Pain after trauma AP, lateral, and oblique plain film views of the left elbow were obtained. COMPARISON: None. FINDINGS: No fracture or dislocation of the left elbow is identified. There is no joint effusion or radiopaque foreign body seen. Slight degenerative spurring of the left elbow joint is noted. IMPRESSION: No fracture or dislocation of the left elbow is identified. Mild degenerative changes. Report Dictated on --- Final --- Dictating Physician: MD RAMIREZ JONATHAN R Signed Date and Time: 02/03/2020 4:33 pm Signed by: MD RAMIREZ JONATHAN R Transcribed Date and Time: 02/03/2020 4:34 [facility] [place] X[facility] FINGER LEFT (MIN 2 VIEWS) on 02-03-2020 Patient Name: HUMBLE JUDD ---Diagnostic Radiology--- Exam Date/Time 02/03/2020 15:56:37 EDT Exam CR Finger(s) Min 2 Views Left Ordering Physician MAU PEDRAZA Accession Number [id number] CPT4 Codes 51689 () Reason For Exam Sprain lt thumb Report LEFT THUMB CLINICAL INDICATION: Pain after trauma AP and lateral plain films of the left thumb were obtained. COMPARISON: None FINDINGS: No fracture or dislocation of the left thumb is identified. There is no abnormal soft tissue swelling or radiopaque foreign body. Mild loss of joint space and degenerative spurring is noted. IMPRESSION: No fracture or dislocation of the left thumb is identified. Mild osteoarthritis of the left thumb. Report Dictated on --- Final --- Dictating Physician: MD RAMIREZ JONATHAN R Signed Date and Time: 02/03/2020 4:35 pm Signed by: MD RAMIREZ JONATHAN R Transcribed Date and Time: 02/03/2020 4:36 [place] Incoming Radiology Results From [facility] - 02/03/2020 4:37 PM EDT Patient Name: HUMBLE JUDD ---Diagnostic Radiology--- Exam Date/Time 02/03/2020 15:56:37 EDT Exam CR Finger(s) Min 2 Views Left Ordering Physician MAU PEDRAZA Accession Number [id number] CPT4 Codes 87728 () Reason For Exam Sprain lt thumb Report LEFT THUMB CLINICAL INDICATION: Pain after trauma AP and lateral plain films of the left thumb were obtained. COMPARISON: None FINDINGS: No fracture or dislocation of the left thumb is identified. There is no abnormal soft tissue swelling or radiopaque foreign body. Mild loss of joint space and degenerative spurring is noted. IMPRESSION: No fracture or dislocation of the left thumb is identified. Mild osteoarthritis of the left thumb. Report Dictated on --- Final --- Dictating Physician: MD RAMIREZ JONATHAN R Signed Date and Time: 02/03/2020 4:35 pm Signed by: MD RAMIREZ JONATHAN R Transcribed Date and Time: 02/03/2020 4:36 [place] XR Shoulder Left 2 VWon 09-0 4-2020 Patient Name: HUMBLE JUDD ---Diagnostic Radiology--- Exam Date/Time 02/03/2020 15:56:37 EDT Exam CR Shoulder 2+ Views Left Ordering Physician MILO MAU Accession Number [id number] CPT4 Codes 07817 () Reason For Exam Strain lt shoulder Report LEFT SHOULDER CLINICAL INDICATION: Pain after trauma Three views of the left shoulder were obtained. COMPARISON: None. FINDINGS: No fracture or dislocation of the left shoulder is identified. There is no abnormal soft tissue swelling. The left acromioclavicular and glenohumeral joints appear grossly normal. IMPRESSION: Unremarkable plain films of the left shoulder. Report Dictated on --- Final --- Dictating Physician: MD RAMIREZ JONATHAN R Signed Date and Time: 02/03/2020 4:33 pm Signed by: MD RAMIREZ JONATHAN R Transcribed Date and Time: 02/03/2020 4:34 [place], [employer] [place] [employer] Incoming Radiology Results From [facility] - 02/03/2020 4:34 PM EDT Patient Name: HUMBLE JUDD ---Diagnostic Radiology--- Exam Date/Time 02/03/2020 15:56:37 EDT Exam CR Shoulder 2+ Views Left Ordering Physician MAU PEDRAZA Accession Number [id number] CPT4 Codes 03096 () Reason For Exam Strain lt shoulder Report LEFT SHOULDER CLINICAL INDICATION: Pain after trauma Three views of the left shoulder were obtained. COMPARISON: None. FINDINGS: No fracture or dislocation of the left shoulder is identified. There is no abnormal soft tissue swelling. The left acromioclavicular and glenohumeral joints appear grossly normal. IMPRESSION: Unremarkable plain films of the left shoulder. Report Dictated on --- Final --- Dictating Physician: MD RAMIREZ JONATHAN R Signed Date and Time: 02/03/2020 4:33 pm Signed by: MD RAMIREZ JONATHAN R Transcribed Date and Time: 02/03/2020 4:34 [place] XR WRIST LEFT 3 VWon 020 Patient Name: HUMBLE JUDD ---Diagnostic Radiology--- Exam Date/Time 02/03/2020 15:56:37 EDT Exam CR Wrist Complete 3 Views Left Ordering Physician MAU PEDRAZA Accession Number [id number] CPT4 Codes 83236 () Reason For Exam Sprain lt wrist Report LEFT WRIST CLINICAL INDICATION: Pain after trauma AP, lateral, and oblique plain film views of the left wrist were obtained. COMPARISON: None FINDINGS: No fracture or dislocation of the left wrist is identified. There is no abnormal soft tissue swelling or radiopaque foreign body seen. There is severe loss of joint space and degenerative spurring at the scaphotrapezial joint. IMPRESSION: No fracture or dislocation of the left wrist is identified. 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 Report Dictated on --- Final --- Dictating Physician: MD RAMIREZ JONATHAN R Signed Date and Time: 02/03/2020 4:35 pm Signed by: MD RAMIREZ JONATHAN R Transcribed Date and Time: 02/03/2020 4:36 [place], [place] [employer] Incoming Radiology Results From [facility] - 02/03/2020 4:36 PM EDT Patient Name: HUMBLE JUDD ---Diagnostic Radiology--- Exam Date/Time 02/03/2020 15:56:37 EDT Exam CR Wrist Complete 3 Views Left Ordering Physician MAU PEDRAZA Accession Number [id number] CPT4 Codes 30015 () Reason For Exam Sprain lt wrist Report LEFT WRIST CLINICAL INDICATION: Pain after trauma AP, lateral, and oblique plain film views of the left wrist were obtained. COMPARISON: None FINDINGS: No fracture or dislocation of the left wrist is identified. There is no abnormal soft tissue swelling or radiopaque foreign body seen. There is severe loss of joint space and degenerative spurring at the scaphotrapezial joint. IMPRESSION: No fracture or dislocation of the left wrist is identified. 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 Report Dictated on --- Final --- Dictating Physician: MD RAMIREZ JONATHAN R Signed Date and Time: 02/03/2020 4:35 pm Signed by: MD RAMIREZ JONATHAN R Transcribed Date and Time: 02/03/2020 4:36 [facility] 07-29-2019 MEDCO-14 MEDCO-14 MEDCO-14 Physician's Report of Work Ability [facility]-[id number] Injured Worker: HUMBLE JUDD Date of injury: 07/28/2019 Date of this appointment/examinati on: 07/29/2019 1. MEDCO-14 submission (select one of the options below.) I have never completed a MEDCO-14. Proceed to section 2. 2. Employment/Occupation (Complete this section and proceed to section 3.) Updates: Yes, I have reviewed the description of the injured worker's job held on the date of the injury (former position of employment). Job description provided by: Injured worker. 3A. Work Status/Injured worker's capabilities. Updates: Does the injured worker have any physical or health restrictions related to allowed conditions in the claim? Yes The restrictions are temporary. Proceed to section 3B 3B. Can the injured worker return to full duties of his/her job held on the date of injury (former position of employment)? No. The injured worker could not do the job held on the date of the injury for this period of restricted duty. Date: 07/29/2019. Estimate of when the injured worker should be able to return to the job held on the date of injury for this period of restricted duty. Date: 08/05/2019 Proceed to section 3C 3C. Please indicate which of the activities listed below the injured worker can perform (even if the response to 3B is No.) The injured worker is not released to the former position of employment but may return to available and appropriate work with restrictions, the possible return to work date: 07/09/2019. The injured worker can perform simple grasping with: Both hands. The injured worker can perform repetitive wrist motion with: Both hands. The injured worker's dominant hand is: Right hand. The injured worker can perform repetitive actions to operate foot controls or motor vehicles with: Both feet. If the injured worker is taking prescribed medications for the allowed conditions in this claim, can the injured worker safely: *Operate heavy machinery: No. *Drive: Yes *Perform other critical job tasks as defined by any source listed above in section 2: Yes. Please indicate the following: N=Never, O=Occasionally, F=Frequently, C=Continuously Bend: Frequently Squat/kneel: Frequently Twist/turn: Frequently Climb: Occasionally Reach above shoulder: Occasionally Type/keyboard: Continuously Work w/cold substances: Continuously Work w/hot substances: Continuously Lifting/carrying 0 - 10 lbs: Continuously Lifting/carrying 11 - 20 lbs: Frequently Lifting/carrying 21 - 40 lbs: Occasionally Lifting/carrying 41 - 60 lbs: Never Lifting/carrying 61 - 100 lbs: Never Pushing/pulling 0 to 25 lbs: Continuously Pushing/pulling 26 to 40 lbs: Frequently Pushing/pulling 41 to 60 lbs: Occasionally Pushing/pulling 61 to 100 lbs: Never Pushing/pulling 100 + lbs: Never How many total hours can the injured worker work: 5 days per week, 8 hours per day In an eight-hour workday, how many total hours can the injured worker: Sit: 8 hours, continuously Stand: 7 hours, continuously Walk: 8 hours, continuously Does the injured worker have any functional restrictions based only on allowed psychological conditions? No Note: If Yes is indicated please reference the MEDCO-16 as needed. Additionally, please provide any additional information addressing the injured worker's capabilities and/or job accommodations which may not be addressed above. 4A. Disability information (If 3B above is No or dates updated - all 4A pool, including site/location if applicable must be completed) Complete the chart below and furnish the narrative description of the diagnosis(es), site/location, if applicable, and the ICD code(s) for the condition(s) being treated due to the work-related injury/disease. Please indicate if the condition is preventing the injured worker from returning to job duties he/she held on the date of the injury. 5. Clinical findings: You can reference offices notes in lieu of writing clinical findings below. The injured worker is progressing: as expected. Provide your clinical and objective findings supporting your medical opinion outlined on this form. List barriers to return to work and reason, for the injured worker's delay in recovery. 6. Maximum medical improvement (MMI): MMI is a treatment plateau (static or well-stabilized) at which no fundamental functional or physiological change can be expected within reasonable medical probability, in spite of continuing medical or rehabilitative procedures. Has the work-related injury(s) or occupational disease reached MMI based on the definition above? No No, the proposed treatment plan, including estimated duration of each treatment. *Note: An injured worker may need supportive treatment to maintain his or her level of function after reaching MMI. Thus, periodic medical treatment may still be requested and provided. 7. Vocational rehabilitation: Vocational rehabilitation is an individualized and voluntary program for an eligible injured worker who needs assistance in safely returning to work or in retaining employment.This program can be tailored around an injured worker's restrictions and may provide job seeking skills or necessary retraining. Is the injured worker a candidate for vocational rehabilitation services focusing on return to work? No. If no, please explain why and provide your recommendations to help the injured worker return to employment. 8. Treating physician signature - mandatory I certify the information on this form is correct to the best of my knowledge. I am aware that any person who knowingly makes a false statement, misrepresentation, concealment of fact or any other act of fraud to obtain payment as provided by [facility], or who knowingly accepts payment to which that person is not entitled, is subject to felony criminal prosecution and may be punished, under appropriate criminal provisions. by a fine or imprisonment or both. Treating physician's name (please print legibly): Dr. Christie Moody. [facility] provider (Johanna) number: Complete Address, Telephone, Fax number and Date: [facility] [address] [place] [id number] (PH): [phone] (FAX): [phone] Treating physician's signature: Dr. Christie Moody Signatures Electronically signed by : Christie Moody DO; Jul 29 2019 5:18PM EST (Author) Electronically signed by : Christie Moody DO; Jul 29 2019 5:19PM EST (Author) Normal [facility] Office Visit [facility] Office Visit [facility] *Chief Complaint Elbow Pain Shoulder Pain Date of Injury: 07/29/2019. History of Present Illness Patient presents with left elbow and left shoulder discomfort after slipping on ice yesterday in the parking lot of an apartment complex. He did not hit his head or pass out. He was having discomfort and decreased range of motion especially to the left elbow but now he can move the elbow all around. He was having a lot of discomfort when he passed on the tip of the elbow but now that has improved as well. No numbness tingling or weakness to the area. No prior history of injury to the left elbow or shoulder. He states that he has to get into some small areas at work which is hard with a left elbow and shoulder discomfort. All other systems have been reviewed and are negative except for what is noted in the HPI. *Current Meds Medication NameInstruction predniSONE 20 MG Oral TabletTAKE 3 TABLETS DAILY FOR 3 DAYS, THEN 2 TABLETS DAILY FOR 3 DAYS, THEN 1 TABLET DAILY FOR 3 DAYS. *Allergies No Known Drug Allergies *Vitals Vital Signs Recorded: [id number] 04:45PM Temperature: 98.2 F Heart Rate: 58 Respiration: 16 Systolic: 133 Diastolic: 78 Height: 6 ft 1 in Weight: 230 lb BMI Calculated: 30.35 BSA Calculated: 2.28 O2 Saturation: 96 Pain Scale: 6 Physical Exam Gen - No acute findings nor signs of distress Skin - [place] complexion, no diaphoresis, moist mucosa. No edema or ecchymosis of LT elbow/shoulder EENT - Sclera white Heart - RRR, no S3, S4, M Lungs - CTAB, no c/w, full bs's throughout Psych - Normal mood and affect M-Skel - Normal Gait, full ROM of LT shoulder and elbow. No obvious bony tenderness, abnormality or crepitance. Neuro - Strength, sensation, reflexes grossly intact and symmetrical *Diagnosis/Problems Contusion of left elbow, initial encounter (923.11) (S50.02XA) Strain of left shoulder, initial encounter (840.9) (S46.912A) *Patient Discussion/Summary CALL TODAY TO MAKE A FOLLOW-UP APPOINTMENT WITH OCCUPATIONAL MEDICINE. SEE FORM WITH LOCATION INFORMATION. Alternate ice and heat as discussed. MEDCO-14 MEDCO-14 Physician's Report of Work Ability [facility]-[id number] Injured Worker: HUMBLE JUDD Date of injury: 07/28/2019 Date of this appointment/examinati on: 07/29/2019 1. MEDCO-14 submission (select one of the options below.) I have never completed a MEDCO-14. Proceed to section 2. 2. Employment/Occupation (Complete this section and proceed to section 3.) Updates: Yes, I have reviewed the description of the injured worker's job held on the date of the injury (former position of employment). Job description provided by: Injured worker. 3A. Work Status/Injured worker's capabilities. Updates: Does the injured worker have any physical or health restrictions related to allowed conditions in the claim? Yes The restrictions are temporary. Proceed to section 3B 3B. Can the injured worker return to full duties of his/her job held on the date of injury (former position of employment)? No. The injured worker could not do the job held on the date of the injury for this period of restricted duty. Date: 07/29/2019. Estimate of when the injured worker should be able to return to the job held on the date of injury for this period of restricted duty. Date: 08/05/2019 Proceed to section 3C 3C. Please indicate which of the activities listed below the injured worker can perform (even if the response to 3B is No.) The injured worker is not released to the former position of employment but may return to available and appropriate work with restrictions, the possible return to work date: 07/09/2019. The injured worker can perform simple grasping with: Both hands. The injured worker can perform repetitive wrist motion with: Both hands. The injured worker's dominant hand is: Right hand. The injured worker can perform repetitive actions to operate foot controls or motor vehicles with: Both feet. If the injured worker is taking prescribed medications for the allowed conditions in this claim, can the injured worker safely: *Operate heavy machinery: No. *Drive: Yes *Perform other critical job tasks as defined by any source listed above in section 2: Yes. Please indicate the following: N=Never, O=Occasionally, F=Frequently, C=Continuously Bend: Frequently Squat/kneel: Frequently Twist/turn: Frequently Climb: Occasionally Reach above shoulder: Occasionally Type/keyboard: Continuously Work w/cold substances: Continuously Work w/hot substances: Continuously Lifting/carrying 0 - 10 lbs: Continuously Lifting/carrying 11 - 20 lbs: Frequently Lifting/carrying 21 - 40 lbs: Occasionally Lifting/carrying 41 - 60 lbs: Never Lifting/carrying 61 - 100 lbs: Never Pushing/pulling 0 to 25 lbs: Continuously Pushing/pulling 26 to 40 lbs: Frequently Pushing/pulling 41 to 60 lbs: Occasionally Pushing/pulling 61 to 100 lbs: Never Pushing/pulling 100 + lbs: Never How many total hours can the injured worker work: 5 days per week, 8 hours per day In an eight-hour workday, how many total hours can the injured worker: Sit: 8 hours, continuously Stand: 7 hours, continuously Walk: 8 hours, continuously Does the injured worker have any functional restrictions based only on allowed psychological conditions? No Note: If Yes is indicated please reference the MEDCO-16 as needed. Additionally, please provide any additional information addressing the injured worker's capabilities and/or job accommodations which may not be addressed above. 4A. Disability information (If 3B above is No or dates updated - all 4A pool, including site/location if applicable must be completed) Complete the chart below and furnish the narrative description of the diagnosis(es), site/location, if applicable, and the ICD code(s) for the condition(s) being treated due to the work-related injury/disease. Please indicate if the condition is preventing the injured worker from returning to job duties he/she held on the date of the injury. 5. Clinical findings: You can reference offices notes in lieu of writing clinical findings below. The injured worker is progressing: as expected. Provide your clinical and objective findings supporting your medical opinion outlined on this form. List barriers to return to work and reason, for the injured worker's delay in recovery. 6. Maximum medical improvement (MMI): MMI is a treatment plateau (static or well-stabilized) at which no fundamental functional or physiological change can be expected within reasonable medical probability, in spite of continuing medical or rehabilitative procedures. Has the work-related injury(s) or occupational disease reached MMI based on the definition above? No No, the proposed treatment plan, including estimated duration of each treatment. *Note: An injured worker may need supportive treatment to maintain his or her level of function after reaching MMI. Thus, periodic medical treatment may still be requested and provided. 7. Vocational rehabilitation: Vocational rehabilitation is an individualized and voluntary program for an eligible injured worker who needs assistance in safely returning to work or in retaining employment.This program can be tailored around an injured worker's restrictions and may provide job seeking skills or necessary retraining. Is the injured worker a candidate for vocational rehabilitation services focusing on return to work? No. If no, please explain why and provide your recommendations to help the injured worker return to employment. 8. Treating physician signature - mandatory I certify the information on this form is correct to the best of my knowledge. I am aware that any person who knowingly makes a false statement, misrepresentation, concealment of fact or any other act of fraud to obtain payment as provided by [facility], or who knowingly accepts payment to which that person is not entitled, is subject to felony criminal prosecution and may be punished, under appropriate criminal provisions. by a fine or imprisonment or both. Treating physician's name (please print legibly): Dr. Christie Moody. [facility] provider (Johanna) number: Complete Address, Telephone, Fax number and Date: [facility] [address] [place] [address] (PH): [phone] (FAX): [phone] Treating physician's signature: Dr. Christie Moody Signatures Electronically signed by : Christie Moody DO; Jul 29 2019 5:18PM EST (Author) Electronically signed by : Christie Moody DO; Jul 29 2019 5:19PM EST (Author) Normal Touchworks Vital Signs Date Time Vital Sign Value Performing Clinician Nhi sadler 11-30-2024 08:43-0400 Body weight 116.3 kg Yanira Torres MD Work Phone: [facility] Encounters Encounter Date Encounter Type Care Provider Facility Start: 12-01-2024 End: 12-01-2024 Admission to same day surgery center Makayla Ley RN Orthopaedics Comment on above: Schedule Surgery (Ri ght TKA Jayy 05/01/25 @ Ju /[facility] [employer]/PAS Stockings/Exparel and Sapphenous block/2 hr case) Start: 12-01-2024 End: 12-05-2024 ambulatory Makayla Ley RN Orthopaedics Start: 12-01-2024 End: 12-05-2024 Patient encounter procedure Kash Garcia MD Work Phone: Orthopaedics Start: 12-01-2024 End: 12-05-2024 Patient encounter status Kash Garcia MD Work Phone: [facility] Start: 11-30-2024 End: 11-30-2024 Patient encounter procedure Colten Brooks RT(R) Radiology Start: 11-30-2024 End: 11-30-2024 Office outpatient new 60 minutes Kash Garcia MD Work Phone: Orthopaedics Comment on above: Primary osteoarthrit is of right knee (Primary Dx) Start: 11-30-2024 End: 11-30-2024 ambulatory Colten Brooks RT(R) Radiology Comment on above: Radio Gen RMP Start: 11-30-2024 End: 11-30-2024 Subsequent hospital visit by physician Lyndsay [facility] Randi Work Phone: Radiology Comment on above: Pain [R52] Start: 10-20-2024 End: 10-20-2024 ambulatory Zebulun Beam OFFICE SERVICES ASSISTANT-C Work Phone: [facility] Work Phone: Start: 10-20-2024 End: 10-20-2024 Patient encounter procedure Zebulun Beam OFFICE SERVICES ASSISTANT-C -Pulmonary Services/Neurology Work Phone: Start: 10-20-2024 End: 10-20-2024 ambulatory Zebulun Beam VSC Facility:[facility] Start: 07-16-2023 End: 07[facility]16[facility] Start[facility] 07-14-2023 End: 07-14-2023 ambulatory [facility] Start: 07-14-2023 Encounter for genera l adult medical examination without abnormal findings [facility] Start: 04-24-2020 End: 04-24-2020 Subsequent hospital visit by physician Jasmine Jimenez Work Phone: [facility] Comment on above: Strain of unspecifie d muscle, fascia and tendon at shoulder and upper arm level, left arm, initial encounter Start: 02-03-2020 End: 02-03-2020 Subsequent hospital visit by physician Mau Pedraza Work Phone: [facility] Radiology Procedures Date Procedure Procedure Detail Performing Clinician Start: 04-24-2020 Mri any jt upper extremity w/o contrast matrl Jasmnie Jimenez Work Phone: Start: 02-03-2020 Radex elbow complete minimum 3 views Mau Pedraza Work Phone: Start: 02-03-2020 Radex fingr minimum 2 views Mau Randa Milo Work Phone: Start: 02-03-2020 Radex shoulder compl ete minimum 2 views Mau Randa Milo Work Phone: Start: 02-03-2020 Radex wrist complete minimum 3 views aMu Pedraza Work Phone: Start: 01-08-2019 Lipid 1996 panel - S domo or Plasma Colten Brooks RT(R) Start: 11-29-2018 Follow-up visit Plan of Treatment Date Care Activity Detail Author Start: 2035 RSV Vaccine (1 - 1-d ose 75+ series) RSV Vaccine (1 - 1-dose 75+ series) [facility] Start: 12-06-2033 Urine microalbumin profile DTaP,Tdap,Td Vaccine (2 - Td or Tdap) [facility] Start: 05-01-2025 End: 07-31-2025 STAPHYLOCOCCUS AUREUS & MRSA SCREEN, PCR, NASAL STAPHYLOCOCCUS AUREUS & MRSA SCREEN, PCR, NASAL Lab Routine Preop testing Expected: 05/01/2025, Expires: 07/31/2025 [facility] Work Phone: Comment on above: Expected: 05/01/2025 , Expires: 07/31/2025 Start: 05-01-2025 End: 05-01-2025 Admission to same day surgery center 05/01/2025 7:30 AM EST - 05/01/2025 10:35 AM EST Surgery [facility] [address] [place] [address] Kash Garcia MD [address], [place] [id number] ROBOTIC ASSISTED TOTAL KNEE ARTHROPLASTY [facility] Surgery Comment on above: ROBOTIC ASSISTED TOT AL KNEE ARTHROPLASTY Start: 05-01-2025 End: 05-01-2025 Arthrp kne condyle&platu medial&lat compartments ROBOTIC ASSISTED TOTAL KNEE ARTHROPLASTY Primary osteoarthritis of right knee 05/01/2025 7:30 AM EST AV OR Start: 05-01-2025 Subsequent hospital visit by physician 05/01/2025 7:30 AM EST Hospital Encounter [facility] Surgery [address] [place] [address] Kash Garcia MD [address] [place] [address] Primary osteoarthritis of right knee [M17.11] [facility] Surgery Comment on above: Primary osteoarthrit is of right knee [M17.11] Start: 01-30-2025 Influenza vaccination Influenza Vacc ine (#1) [facility] Start: 12-20-2024 ambulatory Ambulatory Facility:[facility] Start: 01-31-2024 Covid-19 Vaccine ( season) Covid-19 Vaccine ( season) [facility] Start: 01-09-2024 Lipid panel Lipid Screening [facility] Start: 01-08-2022 Diabetes Screening Diabetes Screenin g [facility] Start: 01-31-2020 Influenza vaccination Flu vaccine (# 1) [place], [place] Start: 2010 Pneumococcal Vaccine : 50+ (1 of 1 - PCV) Pneumococcal Vaccine: 50+ (1 of 1 - PCV) [facility] Start: 2010 Screening for malign ant neoplasm of colon Colon cancer screen colonoscopy [place], [place] Start: 2010 Shingles Vaccine (1 of 2) Shingles Vaccine (1 of 2) [place], [place] Start: 2010 Shingrix Vaccine (1 of 2) Shingrix Vaccine (1 of 2) [facility] Start: 2005 Prostate specific antigen measurement Prostate Cancer Screening Discussion [facility] Start: 2005 Screening for malign ant neoplasm of colon [facility] Start: 2000 Lipid panel Lipid screen [place], [place] Start: 1979 DTaP/Tdap/Td vaccine (1 - Tdap) DTaP/Tdap/Td vaccine (1 - Tdap) [place], [place] Start: 1978 Anxiety Screening Anxiety Screening [facility] Start: 1978 Depression Screening Depression Scre zeina [facility] Start: 1978 Hepatitis C screening Hepatitis C [facility] Start: 1978 HIV screening HIV Screening [facility] Start: 1975 HIV screening HIV screen Janice [place], [place] Start: 1960 Hepatitis C screening Hepatitis C [facility] [place], [place] End: 12-31-2025 CT Knee - right WO contrast CT KNEE WO IVCON RIGHT Radiology Routine Primary osteoarthritis of right knee Preop testing Acquired varus deformity of knee, right 1 Occurrences starting 12/05/2024 until 12/31/2025 [facility] Comment on above: 1 Occurrences starti ng 12/05/2024 until 12/31/2025 End: 12-29-2025 XR Knee - right 4 Views XR KNEE GENERAL 4V AP BOTH/PA BOTH/LAT/MERC RIGHT Radiology Routine Primary osteoarthritis of right knee 1 Occurrences starting 11/29/2024 until 12/29/2025 [facility] Work Phone: Comment on above: 1 Occurrences starti ng 11/29/2024 until 12/29/2025 XR Knee - right 4 Views XR KNEE GENERAL 4V AP BOTH/PA BOTH/LAT/MERC RIGHT Radiology Routine Pain 11/30/2024 7:53 AM EDT [facility] Work Phone: End: 12-31-2025 XR Knee - right 4 Views XR KNEE GENERAL 4V AP BOTH/PA BOTH/LAT/MERC RIGHT Radiology Routine Primary osteoarthritis of right knee 1 Occurrences starting 12/05/2024 until 12/31/2025 [facility] Comment on above: 1 Occurrences starti ng 12/05/2024 until 12/31/2025 Immunizations Immunization Date Immunization Notes Care Provider Sal vargas 12-07-2023 tetanus toxoid, redu margie diphtheria toxoid, and acellular pertussis vaccine, adsorbed Zebulun Beam OFFICE SERVICES ASSISTANT-C Work Phone: [facility] Payers Date Payer Category Payer Self-pay 2024 Private Health Insurance [employer] Barriga milton [id number] 2024 Private Health Insurance [id number] Unknown [facility] [id number] Unknown [id number] Unknown [id number] Unknown [id number] Social History Date Type Detail Facility Tobacco smoking stat [facility] Unknown if ever smoked [place], [place] Start: 1960 Sex Assigned At Not on file [place] Start: 12-07-2023 [facility] Start: 1960 Sex Assigned At Male [facility] Start: 07-12-2014 Alcoholic beverage intake Current drinker of alcohol (finding) [facility] Start: 06-23-2014 Alcohol Comment social/occasio nal beer [facility] Gender identity Not on file [facility] Medical Equipment Procedure Code Equipment Code Equipment Original Text Equipment Identifier Dates Vivek Bn Plc R+G 40gm Gentmycn - [id number] Start: 07-10-2014 Comment on above: Description: RADIOPA QUE BONE CEMENT W/GENTAMICIN Knee Sm Uni Twin Femoral Cemen - [id number] Start: 07-10-2014 Comment on above: Description: [place] FEMORAL Comp Tib Oxfd E Lt Medial Kn - [id number] Start: 07-10-2014 Comment on above: Description: LEFT TI BIAL TRAY Bear 3mm Oxfd Arcm Lt Kn - [id number] Start: 07-10-2014 Comment on above: Description: MENISCA L BEARING Goals Date Patient Goal Desired Activity /State Personal health goal Functional Status Date Assessment Result Facility 08-29-2014 Are you deaf, or do you have serious difficulty hearing No 08/29/2014 4:21 PM EDT Brianna Avilez PA-C No [facility] 08-29-2014 Are you blind, or do you have serious difficulty seeing, even when wearing glasses No 08/29/2014 4:21 PM EDT Brianna Avilez PA-C No [facility] 08-29-2014 Do you have serious difficulty walking or climbing stairs No 08/29/2014 4:21 PM EDT Brianna Avilez PA-C No [facility] 08-29-2014 Do you have difficul ty dressing or bathing No 08/29/2014 4:21 PM EDT Brianna Avilez PA-C No [facility] 08-29-2014 Because of a physica l, mental, or emotional condition, do you have difficulty doing errands alone such as visiting a physician's office or shopping No 08/29/2014 4:21 PM EDT Brianna Avilez PA-C No [facility] Mental Status Date Assessment Result Facility 08-29-2014 Because of a physica l, mental, or emotional condition, do you have serious difficulty concentrating, remembering, or making decisions No 08/29/2014 4:21 PM EDT Brianna Avilez PA-C No [facility] Clinical Notes 11-30-2024 to 12-01-2024 Makayla Ley RN - 12/01/2024 1:54 PM Kash Martinez MD - 11/30/2024 8:42 AM Colten Mcrae, RT(R) - 11/30/2024 8:00 AM EDT Note Date & Type Note Facility 12-01-2024 Note HNO ID: [id number] Author: MAKAYLA LEY RN Service: ? Author Type: Registered Nurse Type: Progress Notes Filed: 12/01/2024 13:56 Note Text: ORTHO CARE COORDINATION QUICK NOTE Patient has been identified by name and date of : Yes Right TKA Jayy 05/01/25 @ Ju Ley RN [facility] 12-01-2024 History of Present illness Narrative ORTHO CARE COORDINATION QUICK NOTE Patient has been identified by name and date of : Yes Right TKA Jayy 05/01/25 @ Ju Ley RN documented in this encounter [facility] 11-30-2024 Note HNO ID: [id number] Author: KASH GARCIA MD Service: ? Author Type: Physician Type: Progress Notes Filed: 11/30/2024 09:15 Note Text: CONSULT ORTHOPAEDIC: KNEE PRIMARY CARE PHYSICIAN: Melo Ramesh MD REFERRING PROVIDER: SELF ASSESSMENT AND PLAN Impression: Right Knee Severe Degenerative Osteoarthritis, Primary 64M Healthy Hx of L uni in 1999 with Kolczun R knee pain, end stage OA. Hx of bracing, nsaids, failed conserv tx Plan: R TOTAL KNEE ARTHROPLASTY Jayy 1 night stay Aspirin Diagnoses: (M17.11) Primary osteoarthritis of right knee (primary encounter diagnosis) Based upon the evaluation today and after discussions with Humble Judd, Humble Judd has significant, worsening pain at the knee. This pain is increased with activity and weight bearing, and interferes with activities of daily living. These symptoms have continued despite a number of non-surgical measures, including a trial of oral pain medication and attempted physical therapy/ structured exercise program and/or use of an assistive device/ bracing (for at least 12 weeks unless the patient was unable to tolerate these measures as discussed above). At this point, the patient will not benefit from further PT due to the severity of their condition. The patient's physical examination is consistent with limitations in range of motion, pain with passive range of motion, crepitus, and effusion/ synovitis. These examination findings are corroborated by imaging findings of joint space narrowing, periarticular osteophyte formation, and subchondral sclerosis. The patient has been treated by the practice and all reasonable treatments have failed to control the disease, which causes significant pain and limits activities of daily living. The patient has failed conservative treatment and joint replacement surgery was discussed and agreed upon by both provider and patient. We will proceed with surgical management to improve function and relieve pain refractory to non-surgical measures. Right Primary Total Knee Arthroplasty as evidenced by six months of unsuccessful non-operative treatment as outlined in the HPI below. Informed consent obtained in the office today. The risks and benefits of surgery were discussed at length including but not limited to the risks of infection, bleeding, nerve or blood vessel injury, deep venous thrombosis, pulmonary embolism, arthrofibrosis, reflex sympathetic dystrophy, , paralysis, knee or patellar dislocation, extensor mechanism injury, bone fracture, component loosening or failure requiring re-operation or amputation. Informed consent was obtained and the patient was scheduled for surgery. We also discussed fixation strategies including cement and cementless fixation and advantages and disadvantages of each. We discussed the details of the surgery as well as rehabilitation. All questions were answered, and the patient wishes to proceed with surgery.. The patient has been ordered: Office Visit on 11/30/24 XR KNEE GENERAL 4V AP BOTH/PA BOTH/LAT/MERC RIGHT Anemia Screen CONSULTS: IMPACT/PACE Consult for preoperative clearance. Total Joint Arthroplasty: Risk Calculator Humble Judd has a 2.24% chance of NOT returning home at discharge for a Primary total Knee replacement. Humble's estimated Length of Stay is 1 day (Outpatient candidate). Humble's 30 day chance of readmission is 2.14%. Readmission Probability 2.14 % (within 30 days following surgery) Estimated LOS 1 day Discharge Disposition Probability D/C to Home 97.76 % D/C to SNF 2.24 % These calculations are based on the following factors: - 64 years of age - sex is male - BMI of 33.83 kg/m2 - NarxCare score of 40 - 0 hospitalizations in the last 12 months - no history of heart disease - no history of diabetes - no history of COPD - no history of anemia - preoperative ambulation: independent community distances - 0 step(s) to enter home - bed location is on the first floor - bath location is on the first floor - caregiver is consistent - home is more than 150 miles away - PROMIS-10 Mental Health T score not available - Marital status: Risk Factors for Total Knee Arthroplasty (TKA) Major Risk Factors Obesity Unknown Risk High: BMI > 40 Moderate: BMI 30-40 Normal: BMI < 30 Diabetes normal High: A1C > 8 Moderate: A1C 7-8 Normal: A1C < 7 Hx of DVT / PE normal High: dx of DVT / PE Normal: no dx of DVT / PE Smoking normal High: Current smoker Normal: Non smoker Narcotics Use normal High:NarxCare >=300 Moderate: 100-299 Normal: 0-99 Depression Unknown Risk High: PHQ-9 >14 Moderate: PHQ-9 5-14 Normal: PHQ-9 < 5 Area Deprivation Index (SARANYA) Unknown Risk High: SARANYA Score > 75 Moderate: SARANYA 50-75 Normal: SARANYA < 50 Obesity: height and/or weight are out of date (There is no height and/or weight reading in the past 365 days, so the below BMI readings may be srikanth (more content not included)... [facility] 11-30-2024 History of Present illness Narrative Images from the original note were not included. CONSULT ORTHOPAEDIC: KNEE PRIMARY CARE PHYSICIAN: Melo Ramesh MD REFERRING PROVIDER: SELF ASSESSMENT & PLAN Impression: Right Knee Severe Degenerative Osteoarthritis, Primary 64M Healthy Hx of L uni in 1999 with [place] R knee pain, end stage OA. Hx of bracing, nsaids, failed conserv tx Plan: R TOTAL KNEE ARTHROPLASTY Jayy 1 night stay Aspirin Diagnoses: (M17.11) Primary osteoarthritis of right knee (primary encounter diagnosis) Based upon the evaluation today and after discussions with Humble Judd, Humble Agnes Judd has significant, worsening pain at the knee. This pain is increased with activity and weight bearing, and interferes with activities of daily living. These symptoms have continued despite a number of non-surgical measures, including a trial of oral pain medication and attempted physical therapy/ structured exercise program and/or use of an assistive device/ bracing (for at least 12 weeks unless the patient was unable to tolerate these measures as discussed above). At this point, the patient will not benefit from further PT due to the severity of their condition. The patient's physical examination is consistent with limitations in range of motion, pain with passive range of motion, crepitus, and effusion/ synovitis. These examination findings are corroborated by imaging findings of joint space narrowing, periarticular osteophyte formation, and subchondral sclerosis. The patient has been treated by the practice and all reasonable treatments have failed to control the disease, which causes significant pain and limits activities of daily living. The patient has failed conservative treatment and joint replacement surgery was discussed and agreed upon by both provider and patient. We will proceed with surgical management to improve function and relieve pain refractory to non-surgical measures. Right Primary Total Knee Arthroplasty as evidenced by six months of unsuccessful non-operative treatment as outlined in the HPI below. Informed consent obtained in the office today. The risks and benefits of surgery were discussed at length including but not limited to the risks of infection, bleeding, nerve or blood vessel injury, deep venous thrombosis, pulmonary embolism, arthrofibrosis, reflex sympathetic dystrophy, , paralysis, knee or patellar dislocation, extensor mechanism injury, bone fracture, component loosening or failure requiring re-operation or amputation. Informed consent was obtained and the patient was scheduled for surgery. We also discussed fixation strategies including cement and cementless fixation and advantages and disadvantages of each. We discussed the details of the surgery as well as rehabilitation. All questions were answered, and the patient wishes to proceed with surgery.. The patient has been ordered: Office Visit on 11/30/24 XR KNEE GENERAL 4V AP BOTH/PA BOTH/LAT/MERC RIGHT Anemia Screen CONSULTS: IMPACT/PACE Consult for preoperative clearance. Total Joint Arthroplasty: Risk Calculator Humble Judd has a 2.24% chance of NOT returning home at discharge for a Primary total Knee replacement. Humble's estimated Length of Stay is 1 day (Outpatient candidate). Humble's 30 day chance of readmission is 2.14%. Readmission Probability 2.14 % (within 30 days following surgery) Estimated LOS 1 day Discharge Disposition Probability D/C to Home 97.76 % D/C to SNF 2.24 % These calculations are based on the following factors: - 64 years of age - sex is male - BMI of 33.83 kg/m2 - NarxCare score of 40 - 0 hospitalizations in the last 12 months - no history of heart disease - no history of diabetes - no history of COPD - no history of anemia - preoperative ambulation: independent community distances - 0 step(s) to enter home - bed location is on the first floor - bath location is on the first floor - caregiver is consistent - home is more than 150 miles away - PROMIS-10 Mental Health T score not available - Marital status: Risk Factors for Total Knee Arthroplasty (TKA) Major Risk Factors Obesity Unknown Risk High: BMI > 40 Moderate: BMI 30-40 Normal: BMI < 30 Diabetes normal High: A1C > 8 Moderate: A1C 7-8 Normal: A1C < 7 Hx of DVT / PE normal High: dx of DVT / PE Normal: no dx of DVT / PE Smoking normal High: Current smoker Normal: Non smoker Narcotics Use normal High:NarxCare >=300 Moderate: 100-299 Normal: 0-99 Depression Unknown Risk High: PHQ-9 >14 Moderate: PHQ-9 5-14 Normal: PHQ-9 < 5 Area Deprivation Index (SARANYA) Unknown Risk High: SARANYA Score > 75 Moderate: SARANYA 50-75 Normal: SARANYA < 50 Obesity: height and/or weight are out of date (There is no height and/or weight reading in the past 365 days, so the below BMI readings may be inaccurate) BMI Readings from Last 3 Encounters: 07/12/14 : 29.69 kg/m 07/10/14 : 30.21 kg/m 06/23/14 : 30.21 kg/m Area Deprivation Index (SARANYA) No data to display Patient Health Questionnaire (PHQ-9) No data to display (0-4) minimal depression, (5-9) mild depression, (10-14) moderate depression, (15-19) moderately severe depression, (20-27) severe depression Bone Density Risk Screen Humble Judd is low risk for bone loss based on his age and having no previous diagnoses of osteopenia, osteoporosis, Paget's disease of bone, or cancer of bone. Other risk factors are listed below to determine if they pose a significant risk for bone loss, and if so, recommend ordering a bone densitometry and, upon receiving a result, as needed, order a consult to a bone health specialist (Rheumatology, Endocrinology, or Women's Health) for bone assessment. Risk Factors: Prednisone or use of systemic steroids Additional Risk Factors Malnutrition: No Malnutrition Screening Tool (MST) score on file- please complete the MST screening tool (click here to open) and refresh the note. ACTIVE PROBLEM LIST Tear of Medial Cartilage Or Meniscus of Knee, Current Pain in Joint, Lower Leg Muscular Wasting and Disuse Atrophy, Not Elsewhere Classified Oa (Osteoarthritis) of Knee Follow-Up Examination, Following Unspecified Surgery Hydrarthrosis SUBJECTIVE CHIEF COMPLAINT: right knee pain HPI: Humble Judd is a 64 year old patient with the presenting complaint of New and Pain of the Right Knee. Humble Judd has had progressive problems with the knee(s) constantly over the past 4 year(s) interfering with activities which include walking, standing for prolonged periods of time, and climbing stairs. The problem began limiting activities 7-12 months ago. PROMIS Physical Function Score No data to display FUNCTIONAL STATUS: independent PREVIOUS TREATMENTS: Past anti-inflammatory medications (not necessarily for this reason for visit): celecoxib, dexamethasone sodium phosphate, ibuprofen, ketorolac tromethamine, sulindac REVIEW OF SYSTEMS: PAIN ASSESSMENT: See HPI. MUSCULOSKELETAL: See HPI. No data to display PAST MEDICAL HISTORY Diagnosis Date OA (osteoarthritis) Sinus infection sinus problems Skin infection nape of neck post haircut; saw derm PAST SURGICAL HISTORY Procedure Laterality Date COLONOSCOP W/ OR W/O [facility] SPEC Colonoscopy PAST SURGICAL HISTORY OF 1989 spinal fusion L5-S1 PAST SURGICAL HISTORY OF 1990 removal hardware from spinal fusion PAST SURGICAL HISTORY OF right shoulder scope PAST SURGICAL HISTORY OF right knee scope FAMILY HISTORY Problem Relation Age of Onset Cancer Father lung cancer Social History Tobacco Use Smoking status: Never Substance Use Topics Alcohol use: Yes Comment: social/occasional beer ALLERGIES: Patient has no known allergies. MEDICATIONS: cephALEXin (KEFLEX) 500 mg capsule Take 500 mg by mouth four times daily. HYDROcodone-acetaminophen (NORCO) 5-325 mg per tablet Take 1 tablet by mouth every 6 hours as needed. ondansetron orally disintegrating (ZOFRAN ODT) 4 mg disintegrating tablet Take 1 tablet by mouth every 6 hours. HYDROcodone-acetaminophen (NORCO) 5-325 mg per tablet take 1-2 tablets every 4-6 hours as needed for pain Indications: PAIN docusate sodium (COLACE) 100 mg capsule Take 1 capsule by mouth twice daily as needed for Constipation. Indications: CONSTIPATION scopolamine (TRANSDERM-SCOP) 1.5 mg remove from behind ear on Thursday am Wash hands!!! Indications: PREVENTION OF POST-OPERATIVE NAUSEA AND VOMITING mupirocin (BACTROBAN) 2 % nasal ointment appy twice a day to both nostrils with a q tip beginning five days prior to surgery OBJECTIVE PHYSICAL EXAM: There were no vitals taken for this visit. All other systems deferred. GENERAL: Obese HABITUS: Obese GAIT: Antalgic to the right KNEE EXAM: Right: Alignment: varus, fixed Range of motion is 0 degrees in extension and 130 degrees of flexion. Extension La degrees Pain with ROM: No Effusion: None Tender to the palpation of None Pain with patellar compression: No Stability: Anterior/Posterior stable and Varus/Valgus stable Hip Exam: flexion to 100+ degrees, full extension, internal/external rotation adequate and no pain with log roll Neurovascular Status: Sensation Intact and Moves foot and ankle up & down DATA: Most recent knee imaging was completed on 11/30/2024 (XR KNEE AP/LAT/MERCHANT/WT LT) . Attached is imaging for the order. Diagnostic tests reviewed for today's visit: Right knee X-Ray: Medial joint space noted to have severe degenerative changes The following conditions were addressed during the office visit today: Obesity - Weight management strategies were discussed including diet and exercise. A Consult to Weight Management will be completed to follow up on the plan of care. SIGNATURE: Kash Garcia MD PATIENT NAME: Humble Judd DATE: November 30, 2024 TIME: 8:43 AM documented in this encounter [facility] 11-30-2024 Note HNO ID: [id number] Author: COLTEN BROOKS RT(R) Service: ? Author Type: Technologist Type: Progress Notes Filed: 11/30/2024 08:00 Note Text: Radiology Service Progress Note PATIENT NAME: Humble Judd DATE OF SERVICE: November 30, 2024 TIME: 8:00 AM PATIENT IDENTITY VERIFICATION COMPLETED USING TWO (2) IDENTIFIERS: Name and Date of confirmed by patient verbally. FALL SCREENING: Has the patient had 2 falls in the last year or 1 fall with injury or currently using an Ambulatory Assistive Device (Walker, Cane, Wheelchair, Crutches, etc.)? Yes, Patient High Risk for Falls What interventions were put in place to prevent falls during this visit? Instructed Patient to Remain Seated (Not on Exam Table) Until Exam and Increased Observations by Caregivers PATIENT GENDER DATA: Assigned male at PATIENT RELEVANT IMPLANT DATA REVIEWED: Not Applicable PATIENT PRESENTS WITH AN IMPLANTABLE OR ATTACHED MINING HELPER: No RADIOLOGY DEPARTMENT: General X-ray: Exam(s) Completed: Lower Extremity X-Ray(s): Knee, AP / Lat / Tunne / Merchant Right and Wt. Bearing PERIPHERAL IV DATA: Not applicable SIGNED BY: RT Sadie(R) November 30, 2024 8:00 AM [facility] 11-30-2024 History of Present illness Narrative Radiology Service Progress Note PATIENT NAME: Humble Judd DATE OF SERVICE: November 30, 2024 TIME: 8:00 AM PATIENT IDENTITY VERIFICATION COMPLETED USING TWO (2) IDENTIFIERS: Name and Date of confirmed by patient verbally. FALL SCREENING: Has the patient had 2 falls in the last year or 1 fall with injury or currently using an Ambulatory Assistive Device (Walker, Cane, Wheelchair, Crutches, etc.)? Yes, Patient High Risk for Falls What interventions were put in place to prevent falls during this visit? Instructed Patient to Remain Seated (Not on Exam Table) Until Exam and Increased Observations by Caregivers PATIENT GENDER DATA: Assigned male at PATIENT RELEVANT IMPLANT DATA REVIEWED: Not Applicable PATIENT PRESENTS WITH AN IMPLANTABLE OR ATTACHED MINING HELPER: No RADIOLOGY DEPARTMENT: General X-ray: Exam(s) Completed: Lower Extremity X-Ray(s): Knee, AP / Lat / Tunne / Merchant Right and Wt. Bearing PERIPHERAL IV DATA: Not applicable SIGNED BY: RT Sadie(R) November 30, 2024 8:00 AM documented in this encounter [facility] Evaluation note No assessment inform ation available [facility] Work Phone: Evaluation note Diagnosis Primary osteoarthritis of right knee- Primary Primary localized osteoarthrosis, lower leg [facility] Pain Generalized pain [facility] Diagnosis Primary osteoarthritis of right knee- Primary Primary localized osteoarthrosis, lower leg Primary osteoarthritis of right knee Primary localized osteoarthrosis, lower leg [facility] Diagnosis Primary osteoarthritis of right knee- Primary Primary localized osteoarthrosis, lower leg Preop testing Preoperative examination, unspecified Acquired varus deformity of knee, right Primary osteoarthritis of right knee Primary localized osteoarthrosis, lower leg [facility]narrative)No reason for referral information availableWToledo Hospital Work Phone: Reason for visit Narrative* Diagnostic Procedure Only (Routine) - Closed Specialty Diagnoses / Procedures Referred By Contac t Referred To Contact XR IMAGING Diagnoses Pain Procedures XR KNEE GENERAL 4V AP BOTH/PA BOTH/LAT/MERC RIGHT RADIOLOGIC EXAM KNEE COMPLETE 4/MORE VIEWS Kash Garcia MD [address] [place] [address] Phone: tel: fax: [place] [phone] Referral ID Status Reason Start Date Expiration Date V isits Requested Visits Authorized [id number] Closed Auto-Generate d Referral 11/21/2024 12/21/2025 1 1 [facility] Summary Purpose Family History No Family History Records FoundNo Family History Records FoundNo Family History Records FoundNo Family History Records FoundNo Family History Records Found Advance Directives No Advanced Directives Records FoundNo Advanced Directives Records FoundNo Advanced Directives Records FoundNo Advanced Directives Records FoundNo Advanced Directives Records Found Assessments Diagnosis Strain of unspecified muscle, fascia and tendon at shoulder and upper arm level, left arm, initial encounter Chief Complaint and Reason for Visit Chief Complaint Admit Date CARDIAC ARRHYTHMIA, UNSPECIFIED September 7:57am Additional Source Comments (unrecognized sect ion and content) No Status Records FoundNo Status Records FoundNo Status Records FoundNo Status Records FoundNo Status Records Found INFORMATION SOURCE (unrecogn ized section and content) DATE CREATED AUTHOR 07/29/2019 [employer] DATE CREATED AUTHOR AUTHOR'S ORGANIZ ATION 02/17/2020 [facility] DATE CREATED AUTHOR AUTHOR'S ORGANIZ ATION 07/18/2023 [facility] DATE CREATED AUTHOR AUTHOR'S ORGANIZ ATION 12/11/2024 [facility] DATE CREATED AUTHOR AUTHOR'S ORGANIZ ATION 12/16/2024 [facility] Care Teams (unrecognized sec tion and content) Team Status: Active Member Role Status Dates Zebulun Beam VSC, OFFICE SERVICES ASSISTANT-C Primary Care Provider Active Team Status: Inactive Member Role Status Dates Zebulun Beam VSC, OFFICE SERVICES ASSISTANT-C Primary Care Provider Active Start: October 20, 2024 End: October 20, 2024 Zebulun Beam VSC, OFFICE SERVICES ASSISTANT-C Attending Provider Active Start: October 20, 2024 End: October 20, 2024 Zebulun Beam VSC, OFFICE SERVICES ASSISTANT-C Referring Provider Active Start: October 20, 2024 End: October 20, 2024 Manager Global Relationship Specialty Start Date End Date Melo Ramesh [address] [place] [phone] [facility] - General 09/11/00 Manager Global Relationship Specialty Start Date End Date Melo Ramesh [address] [place] [phone] [facility] General 09/11/00 Manager Global Relationship Specialty Start Date End Date Melo Ramesh [address] [place] [phone] [facility] General 09/11/00 Manager Global Relationship Specialty Start Date End Date Melo Ramesh [address] [place] [phone] [facility] General 09/11/00 Manager Global Relationship Specialty Start Date End Date Melo Ramesh [address] [place] [phone] PCP - General 09/11/00 Goals (unrecognized section and content) Goals may be documented in a n alternate section Source Comments (unrecognize d section and content) In the event this informatio n is protected by the Federal Confidentiality of Alcohol and Drug Abuse Patient Records regulations: The Federal rules restrict any use of the information to criminally investigate or prosecute any alcohol or drug abuse patient.[facility] the event this information is protected by the Federal Confidentiality of Alcohol and Drug Abuse Patient Records regulations: The Federal rules restrict any use of the information to criminally investigate or prosecute any alcohol or drug abuse patient.[facility] Center[facility] the event this information is protected by the Federal Confidentiality of Alcohol and Drug Abuse Patient Records regulations: The Federal rules restrict any use of the information to criminally investigate or prosecute any alcohol or drug abuse patient.[facility] Center[facility] the event this information is protected by the Federal Confidentiality of Alcohol and Drug Abuse Patient Records regulations: The Federal rules restrict any use of the information to criminally investigate or prosecute any alcohol or drug abuse patient.[facility] Center[facility] the event this information is protected by the Federal Confidentiality of Alcohol and Drug Abuse Patient Records regulations: The Federal rules restrict any use of the information to criminally investigate or prosecute any alcohol or drug abuse patient.[facility] Reason for Visit (unrecogniz ed section and content) Reason Comments Radio Gen RMP Reason Comments New Pain Reason Comments Schedule Surgery Right TKA Jayy @ [facility] Triathalomari SystemPAS StockingsExparel and Sapphenous block2 hr case FOR RECORDS PERTAINING TO PATIENTS WHO ARE OR HAVE BEEN ENROLLED IN A CHEMICAL DEPENDENCY/SUBSTANCEABUSE PROGRAM, SOME INFORMATION MAY BE OMITTED. This clinical summary was aggregated from multiple sources. Caution should be exercised in using it in the provision of clinical care. This summary normalizes information from multiple sources, and as a consequence, information in this document may materially change the coding, format and clinical context of patient data. In addition, data may be omitted in some cases. CLINICAL DECISIONS SHOULD BE BASED ON THE PRIMARY CLINICAL RECORDS. [facility] [employer] [facility]. provides no warranty or guarantee of the accuracy or completeness of information in this document.
--- NOTE | 2024-12-20 07:49 | PRE.ANES_ITS ---
ASA Classification* ASA Classification ASA Classification: 2 Assessment & Plan Anesthesia* Anesthesia Assessment Anesthesia Assessment: Discussed sedation and/or anesthesia options, risks, benefits, and alternatives with patient/parents/legal guardian/POA. Questions invited. The patient/parents/legal guardian/POA seems to understand and agrees to proceed with anesthesia plan. Reviewed the physical assessment, medical history, allergy history and patient home medications list prior to surgery/procedure/anesthetic and documented any changes. Performed airway and anesthesia risk assessments. Anesthesia Type Anesthesia Type: MAC History Source History Obtained from:: Patient Anesthesia Focused Assessment* Airway Assessment Mouth opens: >3 cm Mallampati Score: IV Teeth Condition: Intact Neck Range of motion (ROM): Full ROM Labs Anesthesia Preop lab: CBC CHEMISTRY COAG Pre-Assessment Diagnosis/Proposed Procedure Planned Operative Procedure(s): COLONOSCOPY Anesthesia History Anesthesia History - campus administrator: Anesthesia History - campus administrator Hx Hospitalization No 12/16/24 11:47 Any Problems With Anesthesia No 12/16/24 11:47 Cholinesterase deficiency No 12/16/24 11:47 You/Your Family Experience No 12/16/24 11:47 fever (hyperthermia) with Relationship Recent Exposure to Contagious Disease Does patient have nerve No 12/16/24 11:47 stimulator Patient instructed to have device shut off --Does patient have Pacemaker or ICD? When Was Last Pacemaker Check QUESTION #4 FULL TEXT: You/Your Family Experience fever (hyperthermia) with Anesthesia Last Oral Intake Last Oral intake: Last Oral Intake NPO since Meds taken in AM with sips of water? 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 - campus administrator: PONV - campus administrator Female No 12/16/24 11:47 HX of Motion Sickness No 12/16/24 11:47 HX of N/V After Surgery No 12/16/24 11:47 Non-Smoker Yes 12/16/24 11:47 Duration of Surgery greater No 12/16/24 11:47 than 60 minutes Number of Risk Factors 1 12/16/24 11:47 PONV Score Low Risk 12/16/24 11:47 Height & Weight Height & Weight: Anesthesia: Height & Weight Height 73 ft 12/07/23 11:11 Respiratory Assessment Respiratory Assessment - campus administrator: Respiratory Tract Infection Hx - campus administrator Hx Respiratory Tract Infection No 12/16/24 11:47 STOP Sleep Apnea STOP Sleep Apnea - campus administrator: STOP Sleep Apnea - campus administrator Hx Hypertension No 12/16/24 11:47 Hx Sleep Apnea No 12/16/24 11:47 CPAP BIPAP Do you snore loudly (louder No 12/16/24 11:47 than talking or can be heard Do you often feel tired/ No 12/16/24 11:47 fatigued/ sleepy during daytime? Has anyone observed you stop No 12/16/24 11:47 breathing during sleep? STOP Results Negative 12/16/24 11:47 QUESTION #5 FULL TEXT : Do you snore loudly (louder than talking or can be heard through closed doors)? Tobacco Use History Tobacco Use History - campus administrator: Tobacco Use History - campus administrator Tobacco Use Smoking Status Never smoker 12/16/24 11:47 Hx Tobacco Use Yes 12/16/24 11:47 Years Smoking Packs Smoked per Day Smoking Cessation Date was within the last 15 years Hx Smoking Cessation Date Hx Smoking Cessation Counseling Hematologic Medial History Hematologic Hx - campus administrator: Hematologic Medical Hx - rn clinical documentation Hx of Blood Transfusion No 12/16/24 11:47 Hx of Transfusion in last 3 No 12/16/24 11:47 Months Date of Last Transfusion (if within last 3 months) Ever experience any problems No 12/16/24 11:47 with transfusion(s)? Specify any problems Hx of Preganancy in last 3 N/A 12/16/24 11:47 Months Nurse Filling Out Transfusion MGRICHAD 12/16/24 11:47 & Questions: Date: 12/16/24 12/16/24 11:47 Time: 11:49 12/16/24 11:47 Patient unable to answer at this time (ie. confused, unrespo /Reproduction History /Reproductive History - campus administrator: /Reproductive Hx- campus administrator Hx Now Gestational Age (in weeks): EDC: Hx Hx Para Hx Section SAB Active Medications Active Medications: Current Medications Generic Name Dose Route Start Last Admin Trade Name Freq PRN Reason Stop Dose Admin Lactated Ringer's 1,000 mls @ 15 mls/hr 12/20/24 07:45 IV .Q48H RACHEL PFSH Medical History (Updated 12/16/24 @ 11:54 by Lisa Dunn) Non-smoker History of irregular heartbeat Home Medications ?Medication ?Instructions ?Recorded ?Last Taken ?Type NK 12/16/24 Unknown History Allergy/AdvReac Type Severity Reaction Status Date / Time No Known Allergies Allergy Verified 12/16/24 11:45 Surgical History (Updated 12/16/24 @ 11:47 by Lisa Dunn) History of knee surgery History of shoulder surgery History of back surgery History of colonoscopy Social History (System 01/01/24 @ 14:59 by Nica Vo) Smoking Status: Never smoker Review of Systems (Anesthesia) ROS Narrative System reviewed and no additional complaints, except as documented.
[2024-12-20 08:01] VITALS: BP 145/86; PULSE 70; RESP 16; TEMP 36.7; O2SAT 100; BMI 33.0
[2024-12-20] MEDS: Lactated Ringers 1,000 ML 15 ML IV (08:18)
--- NOTE | 2024-12-20 09:00 | COLBX_PTH ---
PATIENT: DECLAN HORNER LOC: EN U#:[id number] AGE/SX: 64/M ROOM: RE12/20/[address]: Dr. Leonel Grubbs MD : 1960 BED: DIS: 12/20/2024 SPEC #: [id number] RECD: 12/20/24 11:48 STATUS: FERMIN REKip #: [id number] ROXANNE: 12/20/24 09:[address]: Leonel Grubbs DEPT: SURGICAL PATHOLOGY RECD BY: Javan Villanueva ENTERED: 12/20/24 14:32 SP TYPE: COLON BX OTHR DR: Sky Venegas, [facility], [facility] [facility]-C Tissues: A - Cecum, NOS B - Ascending colon C - Rectum, NOS D - Rectum, NOS Procedures: Surgery Specimen Level IV HEADER OPERATION: Colonoscopy with biopsy, polypectomy, clip PRE-OP DIAGNOSIS: Screening for intestinal cancer TISSUE SUBMITTED: A- Cecal polyp biopsy, B- Ascending colon polyp x2, C- Rectal polyp #1, D- Rectal polyp #2 MICROSCOPIC DIAGNOSIS A. Colon, cecum, polyp, biopsy: - Tubular adenoma. B. Ascending colon, polyp x2, biopsy: - Multiple fragments of tubular adenoma and hyperplastic polyp. C. 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 D. Rectum, polyp #2, biopsy: - Hyperplastic polyp. MICROSCOPIC DESCRIPTION Slides are reviewed. GROSS DESCRIPTION A. Received in fixative is one container labeled with the patient's name and designated Cecal polyp biopsy. The specimen consists of one irregular fragment of light kwon soft tissue that measures 0.7 cm. The specimen is totally submitted in one cassette. B. Received in fixative is one container labeled with the patient's name and designated Ascending colon polyp x2. The specimen consists of multiple irregular fragments of light kwon soft tissue that in aggregate measure 0.8 x 0.7 x 0.1 cm. The specimen is totally submitted in one cassette. C. Received in fixative is one container labeled with the patient's name and designated Rectal polyp #1. The specimen consists of 2 kwon tissue fragments (0.1 cm each) and 2 kwon-red and granular polyps, 0.8 x 0.8 x 0.5 cm (inked black) and 1.4 x 1.3 x 0.6 cm (inked green). Entirely submitted in 2 cassettes as follows: C1: 2 kwon tissue fragments and smaller polyp, trisectedC2: Larger polyp, serially section D. Received in fixative is one container labeled with the patient's name and designated Rectal polyp #2. The specimen consists of multiple irregular fragments of light kwon soft tissue that in aggregate measure 0.1 to 0.3 cm. The specimen is totally submitted in one cassette. [place] 12/20/2024 [facility]:[id number] ADDENDUM ADDENDUM ADDENDUM ADDENDUM ADDENDUM ADDENDUM ADDENDUM ADDENDUM ADDENDUM ADDENDUM ADDENDUM ADDENDUM ADDENDUM ADDENDUM ADDENDUM ADDENDUM ADDENDUM ADDENDUM ADDENDUM ADDENDUM ADDENDUM ADDENDUM ADDENDUM ADDENDUM ADDENDUM ADDENDUM ADDENDUM ADDENDUM ADDENDUM ADDENDUM ADDENDUM ADDENDUM ADDENDUM ADDENDUM ADDENDUM ADDENDUM ADDENDUM ADDENDUM ADDENDUM ADDENDUM ADDENDUM 01/05/2025 15:49 ADDENDUM 01/05/2025 15:49 ADDENDUM 01/05/2025 15:49 ADDENDUM 01/05/2025 15:49 ADDENDUM 01/05/2025 15:49 C. This addendum is to report the IHC results for Mismatch Repair Proteins on the rectal polyp #1: Mismatch Repair Protein (MMR) Nuclear Expression by IHC: ? MLH1: ?Present/intact ? PMS2: ?Present/intact ? MSH2: ?Present/intact ? MSH6: ?Present/intact IHC Interpretation: No loss of nuclear expression of MMR proteins: low probability of microsatellite instability-high (MSI-H)# # There are exceptions to the above IHC interpretations. These results should not be considered in isolation, and clinical correlation with genetic counseling is recommended to assess the need for germline testing. All controls show appropriate reactivity. All immunohistochemistry, in situ hybridization, and histochemical tests were developed by and are performed at the [facility], [address], ?[address], [place] [address]. All Immunofluorescent (IF) ?tests were developed by and are performed at the [facility], [address] [place] [address], [place], [place] ?[address]. All tests reported here, except those addressing HER2 overexpression as a predictive marker, have not been cleared by or approved by the [place] Food and Drug Administration (FDA). The laboratory is regulated under CLIA as qualified to perform high-complexity testing. The tests are used for clinical purposes. They should not be regarded as investigational or for research. The mismatch repair proteins are evaluated by immunohistochemistry on formalin-fixed, paraffin-embedded tissue, using clone [id number] for MLH1, clone [id number] for PMS2, clone RED2 for MSH2, and clone [id number] for MSH6, and Tissue Sidney Genie? Pro Detection Kit, DAB on the Angélica Tissue Sidney Genie Advanced Staining System. Convincing nuclear staining in > 1% of tumor cells that is as strong as internal control is considered present/intact. Complete absence of nuclear staining in tumor cells in the presence of nuclear expression in internal control cells is considered absent/lost. Rarely a discrete area of a tumor can show loss of staining with retained nuclear expression in the adjacent tumor cells and internal control cells, which is regarded as subclonal loss and can also be of clinical significance.?
--- NOTE | 2024-12-20 09:21 | PCM.HP.STD ---
HPI - General General Date of Admission: 12/20/24 Date of Service: 12/20/24 Chief Complaint: Need for colonoscopy HPI Narrative DECLAN HORNER, is a 64 M who presents for screening colonoscopy. His last colonoscopy was over 20 years ago. Patient believes he may have had a polyp at that time but apparently it was not a concerning polyp for the patient. He denies any blood in his stools. No tarry stools no constipation or diarrhea PFS Medical History (Updated 12/20/24 @ 09:[address] Leonel Grubbs MD) Screening for intestinal cancer Non-smoker History of irregular heartbeat Home Medications ?Medication ?Instructions ?Recorded ?Last Taken ?Type NK 12/16/24 Unknown History Allergy/AdvReac Type Severity Reaction Status Date / Time No Known Allergies Allergy Verified 12/20/24 07:58 Surgical History (Updated 12/16/24 @ 11:47 by Lisa Dunn) History of knee surgery History of shoulder surgery History of back surgery History of colonoscopy Social History (System 01/01/24 @ 14:59 by Nica Vo) Smoking Status: Never smoker ROS Constitutional Constitutional: Reports systems reviewed and no addt'l complaints, except as documented Eyes Eyes: Reports systems reviewed and no addt'l complaints, except as documented ENT HEENT: Reports systems reviewed and no addt'l complaints, except as documented Cardiovascular Cardiovascular: Reports systems reviewed and no addt'l complaints, except as documented Respiratory/Chest Respiratory/Chest: Reports systems reviewed and no addt'l complaints, except as documented Gastrointestinal Gastrointestinal: Reports systems reviewed and no addt'l complaints, except as documented Vital Signs Vital Signs Vital Signs: 12/20/24 08:01 12/20/24 08:01 Temperature 98.1 F Temperature Source Temporal Pulse Rate 70 Respiratory Rate 16 Respiratory Pattern Normal Blood Pressure 145/86 H Blood Pressure Mean 105 Blood Pressure Source Monitor Blood Pressure Position Sitting Blood Pressure Location Left Arm Pulse Ox 100 Oxygen Delivery Method Room Air Weight Weight: 250 lb 14.177 oz Body Mass Index (BMI) 33.0 Physical Exam Const alert, oriented x3 and no apparent distress Assessment & Plan Assessment/Plan (1) Screening for intestinal cancer: PLAN: Plan Colonoscopy today. We discussed the details of the planned procedure including risks benefits and alternatives. He wishes to proceed. This will begin momentarily
[2024-12-20 10:25] VITALS: BP 104/78; BP 145/86; PULSE 83; RESP 16; TEMP 36.6; O2SAT 96
[2024-12-20 10:30] VITALS: BP 125/91; BP 145/86; PULSE 80; RESP 16; O2SAT 99
--- NOTE | 2024-12-20 10:33 | OP.CCLET_ITS ---
12/20/2024 Sky Venegas Np, Dental Equipment RepairerGalileoc Re : Colonoscopy procedure for Humble Venegas This procedure was performed on Friday, December 20, 2024. My impressions and recommendations are as follows: Impressions : - Internal hemorrhoids. - One 2 mm polyp in the cecum, removed with a cold biopsy forceps. Resected and retrieved. - Two 4 to 5 mm polyps in the ascending colon, removed with a hot snare. Resected and retrieved. - Two 5 to 6 mm polyps in the rectum, removed with a hot snare. Resected and retrieved. - One 14 mm polyp in the proximal rectum (approx 11 cm from anal verge) , removed with a hot snare. Resected and retrieved. Clips were placed. Injected. - The examination was otherwise normal on direct and retroflexion views. Recommendations : - Discharge patient to home (ambulatory). - High fiber diet indefinitely. - Await pathology results. - Repeat colonoscopy in 1 year for surveillance. - Return to my office PRN. - Continue present medications. My findings are described in the full procedure note, which is enclosed. If I can be of further assistance, please feel free to contact me at . Sincerely, Leonel Grubbs MD 12/20/2024 10:32:59 AM This report has been signed electronically.
--- NOTE | 2024-12-20 10:33 | OP.COLON_ITS ---
Patient Name: Humble Judd Procedure Date: 12/20/2024 9:24 AM Date of : 1960 Age: 64 Procedure: Colonoscopy Indications: High risk colon cancer surveillance: Personal history of colonic polyps Providers: Leonel Grubbs MD Referring MD: Sky Venegas Np, Johanna Medicines: Monitored Anesthesia Care Patient Profile: Refer to note in patient chart for documentation of history and physical. Last Colonoscopy: more than 10 years ago. Complications: No immediate complications. Estimated blood loss: Minimal. Procedure: Pre-Anesthesia Assessment: - Prior to the procedure, a History and Physical was performed, and patient medications and allergies were reviewed. The patient's tolerance of previous anesthesia was also reviewed. The risks and benefits of the procedure and the sedation options and risks were discussed with the patient. All questions were answered, and informed consent was obtained. Prior Anticoagulants: The patient has taken no anticoagulant or antiplatelet agents. ASA Grade Assessment: II - A patient with mild systemic disease. After reviewing the risks and benefits, the patient was deemed in satisfactory condition to undergo the procedure. After I obtained informed consent, the scope was passed under direct vision. Throughout the procedure, the patient's blood pressure, pulse, and oxygen saturations were monitored continuously. The adult colonoscope was introduced through the anus and advanced to the cecum, identified by appendiceal orifice and ileocecal valve. The ileocecal valve, appendiceal orifice, and rectum were photographed. The entire colon was well visualized. The colonoscopy was performed without difficulty. The patient tolerated the procedure well. The quality of the bowel preparation was adequate. Moderate Sedation: See the other procedure note for documentation of moderate sedation with intraservice time. Scope In: 9:34:12 AM Scope Withdrawal Time 0 hours 40 minutes 30 seconds Scope Out: 10:21:06 AM Total Procedure Duration Time 0 hours 46 minutes 54 seconds Findings: The perianal and digital rectal examinations were normal. Internal hemorrhoids were found during endoscopy. The hemorrhoids were moderate. A 2 mm polyp was found in the cecum. The polyp was hyperplastic. The polyp was removed with a cold biopsy forceps. Resection and retrieval were complete. Verification of patient identification for the specimen was done by the nurse using the patient's name, date and medical record number. Estimated blood loss was minimal. Two semi-sessile polyps were found in the ascending colon. The polyps were 4 to 5 mm in size. These polyps were removed with a hot snare. Resection and retrieval were complete. Verification of patient identification for the specimen was done by the nurse using the patient's name, date and medical record number. Estimated blood loss was minimal. Two semi-sessile polyps were found in the rectum. The polyps were 5 to 6 mm in size. These polyps were removed with a hot snare. Resection and retrieval were complete. Verification of patient identification for the specimen was done by the nurse. Estimated blood loss was minimal. A 14 mm polyp was found in the proximal rectum (approximately 11 cm from anal verge) . The polyp was sessile. The polyp was removed with a hot snare. Resection and retrieval were complete. Verification of patient identification for the specimen was done by the nurse using the patient's name, date and medical record number. To prevent bleeding after the polypectomy, two hemostatic clips were successfully placed. Area was successfully injected with 4 mL Spot (carbon black) for tattooing. Estimated blood loss was minimal. The exam was otherwise without abnormality on direct and retroflexion views. Impression: - Internal hemorrhoids. - One 2 mm polyp in the cecum, removed with a cold biopsy forceps. Resected and retrieved. - Two 4 to 5 mm polyps in the ascending colon, removed with a hot snare. Resected and retrieved. - Two 5 to 6 mm polyps in the rectum, removed with a hot snare. Resected and retrieved. - One 14 mm polyp in the proximal rectum (approx 11 cm from anal verge) , removed with a hot snare. Resected and retrieved. Clips were placed. Injected. - The examination was otherwise normal on direct and retroflexion views. Recommendation: - Discharge patient to home (ambulatory). - High fiber diet indefinitely. - Await pathology results. - Repeat colonoscopy in 1 year for surveillance. - Return to my office PRN. - Continue present medications. Procedure Code(s): --- Professional --- 17707, Colonoscopy, flexible; with removal of tumor(s), polyp(s), or other lesion(s) by snare technique 12556, 59, Colonoscopy, flexible; with biopsy, single or multiple 11986, Colonoscopy, flexible; with directed submucosal injection(s), any substance CPT copyright 2021 [employer]. All rights reserved. The codes documented in this report are preliminary and upon blade grader operator review may be revised to meet current compliance requirements. Leonel Grubbs MD 12/20/2024 10:32:59 AM This report has been signed electronically. Number of Addenda: 0 Note Initiated On: 12/20/2024 9:24 AM
[2024-12-20 10:35] VITALS: BP 120/77; BP 145/86; PULSE 80; RESP 18; TEMP 37.3; O2SAT 98
--- NOTE | 2024-12-20 10:35 | PCM.POSTANE2 ---
Anesthesia Postop Eval I Sum Anesthesia Postop Eval I Summary Anesthesia Postop Eval I Summary: Anesthesia Postop Eval I: Assessment Summary Airway patent Spontaneous unlabored respirations Mental status nausea Vomiting Anesthesia Postop Eval I: Fluid Summary Crystalloid volume administer (ml) Colloids volume administered ( ml) Blood Product volume administered (ml) Total IV fluid infused Anesthesia Postop Eval I: Summary Notes Anesthesia Complication Anesthesia Complication Comment: Post-operative progress note Anesthesia: Postop Eval II Evaluation Mental status: Awake and Calm Pain Level: 0 nausea: No Vomiting: No Progress Note Post-operative progress note: meets phase 2 criteria for Discharge Complications Anesthesia Complication: No
--- NOTE | 2024-12-20 10:38 | PCM.POST.ANE ---
Anesthesia: Postop Eval I Current Vital Signs Temperature: 97.9 F Pulse Rate: 82 Blood Pressure: 104/78 Respiratory Rate: 16 Pulse Ox: 96 Oxygen Delivery Method: Room Air Assessment Airway patent: Yes Spontaneous unlabored respirations: Yes Mental status: Awake and Calm nausea: No Vomiting: No Anesthesia Complication: No Fluid Hydration Crystalloid volume administer (ml): 800 Total IV fluid infused: 800 Progress Note Anesthesia document: Postop Eval 1 completed: Yes
[2024-12-20 10:39] VITALS: BP 104/78; PULSE 82; RESP 16; TEMP 36.6; O2SAT 96
[2024-12-20 10:48] VITALS: BP 145/86
== END 2024-12-20 10:56 | disposition home or self-care (01) ==
LOC: EN 07:28 → AC 07:29
PROVIDERS: Visit Provider Surgery
PROC: 0DJD8ZZ Inspection of Lower Intestinal Tract, Via Natural or Artificial Opening Endoscopic (ICD-10-PCS; CPT 45378; principal; 2024-12-20 08:55)
DX: Z12.11 Encounter for screening for malignant neoplasm of colon (principal); C20 Malignant neoplasm of rectum; D12.0 Benign neoplasm of cecum; D12.2 Benign neoplasm of ascending colon; K62.1 Rectal polyp; K64.8 Other hemorrhoids; Z86.0100 Personal history of colon polyps, unspecified
CPT/HCPCS: 45385; 45380; 45381; 88305; A4648; J2405